=== PATIENT | male | born 1960 | race Caucasian/White ===

== ENCOUNTER 2017-08-06 21:51 | Emergency (ER) | payer SELFPAY ==
--- NOTE | 2017-08-06 22:55 | ER Document Report ---
ED General - General Chief Complaint: Anxiety Stated Complaint: POSSIBLE ANXIETY ISSUE Time Seen by Provider: 08/06/17 22:22 Notes: The patient is a 56-year-old male who presents after he was feeling anxious after he thought his blood pressure was elevated. He has been using meth for the past 3 days and has not been sleeping. Patient said that since he has been in the ER, he is no longer feeling anxious and is ready for discharge. No history of high blood pressure. He does not want to hurt himself or anyone else. In addition, he said that he hardly ever uses drugs anymore, but he met a new girl. TRAVEL OUTSIDE OF THE [place] IN LAST 30 DAYS: No - Related Data Allergies/Adverse Reactions: No Known Allergies Allergy (Unverified 04/27/16 02:25) Past Medical History - General Information source: Patient - Social History Smoking Status: Current Every Day Smoker Frequency of alcohol use: None Drug Abuse: Methamphetamine Family History: None GI Medical History: Reports: Hx Gastritis - Immunizations Hx Diphtheria, Pertussis, Tetanus Vaccination: Yes - not for a long time Review of Systems - Review of Systems Notes: REVIEW OF SYSTEMS: CONSTITUTIONAL: -fevers, -chills EENT: -eye pain, -difficulty swallowing, -nasal congestion CARDIOVASCULAR:-chest pain, -syncope. RESPIRATORY: -cough, -SOB GASTROINTESTINAL: -abdominal pain, - nausea, -vomiting, -diarrhea GENITOURINARY: -dysuria, -hematuria MUSCULOSKELETAL: -back pain, -neck pain SKIN: -rash or skin lesions. HEMATOLOGIC: -easy bruising or bleeding. LYMPHATIC: -swollen, enlarged glands. NEUROLOGICAL: -altered mental status or loss of consciousness, -headache, - neurologic symptoms PSYCHIATRIC: +anxiety, -depression. ALL OTHER SYSTEMS REVIEWED AND NEGATIVE. Physical Exam - Notes Notes: PHYSICAL EXAMINATION: GENERAL: Well-appearing, well-nourished and in no acute distress. HEAD: Atraumatic, normocephalic. EYES: Pupils equal round and reactive to light, extraocular movements intact, sclera anicteric, conjunctiva are normal. ENT: nares patent, oropharynx clear without exudates. Moist mucous membranes. NECK: Normal range of motion, supple without lymphadenopathy LUNGS: Breath sounds clear to auscultation bilaterally and equal. No wheezes rales or rhonchi. HEART: Regular rate and rhythm without murmurs ABDOMEN: Soft, nontender, normoactive bowel sounds. No guarding, no rebound. No masses appreciated. EXTREMITIES: Normal range of motion, no pitting or edema. No cyanosis. NEUROLOGICAL: Cranial nerves grossly intact. Normal speech, normal gait. Normal sensory and motor exams. PSYCH: Normal mood, normal affect. SKIN: Warm, Dry, normal turgor, no rashes or lesions noted. Course - Re-evaluation Re-evalutation: Patient denies SI or HI. He is feeling anxious and has been able to sleep since using meth for the past 3 days. He was initially anxious because he felt his blood pressure was high, but his blood pressure is 119/89. Patient is feeling much better since he has been in the ER and after learning that he has a normal BP. Offered him drug counseling at [facility] and follow-up with his primary care physician. No other emergent issues identified at this time. Discharge - Discharge Clinical Impression: Methamphetamine abuse Condition: Stable Disposition: HOME, SELF-CARE Instructions: Anxiety ([facility]) Additional Instructions: AMPHETAMINE / METHAMPHETAMINE ABUSE: Amphetamines are addicting stimulants. Amphetamines overstimulate the nervous system and give a false feeling of power and mastery. These drugs may be obtained as prescription pills for weight loss, narcolepsy, or attention- deficit disorder. More often they're bought as an illegal street drug, methamphetamine (crank, crystal, speed). Using amphetamines repeatedly can lead to serious medical problems including malnutrition, severe depression, and paranoia. It can take increasing amounts to feel good. Eventually, there will be a "burn out." When you go off amphetamines there is a period of depression that may last for weeks or even months. High doses of amphetamines can cause seizures, confusion, hallucinations, delusions, high blood pressure, muscle damage, heart damage, or sudden . Many times these deadly complications occur even with "normal" doses. Injection of amphetamines is risky for developing abscesses, endocarditis ( heart infection), pneumonia, and AIDS. Withdrawal from amphetamines often causes anxiety, depression, and drug cravings. Some users become paranoid and psychotic. There may be cramps, nausea , and vomiting. Many treatment programs are available, but you must make the decision to quit. Medication can be prescribed to control the symptoms of amphetamine toxicity (beta blockers or benzodiazepines). Withdrawal symptoms may require tranquilizers. FOLLOW-UP CARE: If you have been referred to a physician for follow-up care, call the physician s office for an appointment as you were instructed or within the next two days. If you experience worsening or a significant change in your symptoms, notify the physician immediately or return to the Emergency Department at any time for re-evaluation. Referrals: [facility] [Provider Group] - Follow up as needed
[2017-08-06 23:28] VITALS: BP 133/73
== END 2017-08-06 23:00 | disposition home or self-care (01) ==
LOC: ER 21:51
DX: F15.10 Other stimulant abuse, uncomplicated (principal); F17.200 Nicotine dependence, unspecified, uncomplicated
CPT/HCPCS: 99283

== ENCOUNTER 2018-06-12 21:38 | Emergency (ER) | payer SELFPAY ==
[2018-06-12 22:01] VITALS: BP 133/92
--- NOTE | 2018-06-12 22:17 | ER Document Report ---
ED General - General Chief Complaint: Psych Problem Stated Complaint: PSYCH EVAL Time Seen by Provider: 06/12/18 21:56 TRAVEL OUTSIDE OF THE [place] IN LAST 30 DAYS: No - HPI Notes: Patient is a 57-year-old male that presents to the emergency department for chief complaint of hallucinations. Patient states he has schizophrenia which is just now getting diagnosed. He states he has seen a doctor recently for it and is supposed to be started on medication soon. He states he has an appointment on June 23 where the medication will be prescribed. Tonight he was brought in by EMS after experiencing hallucinations. He reports he is having visual and auditory hallucinations. He states that they are not pleasant but are not telling him to hurt himself or other people. He denies any homicidal or suicidal ideations. He states he would like to go home. Past Medical History: Schizophrenia Past Surgical History: Denies Social History: Denies drugs alcohol and tobacco Family History: Reviewed and noncontributory for presenting illness Allergies: Reviewed, see documented allergy list. REVIEW OF SYSTEMS: CONSTITUTIONAL : No fever No chills No diaphoresis No recent illness EENT: No vision changes No congestion No sore throat CARDIOVASCULAR: No chest pain No palpitations RESPIRATORY: No shortness of breath No cough No difficulty breathing GASTROINTESTINAL: No abdominal pain No nausea No vomiting No diarrhea GENITOURINARY: No dysuria No hematuria No difficulty urinating MUSCULOSKELETAL: No back pain No leg pain No arm pain SKIN: No rashes No lesions LYMPHATIC: No swollen, enlarged glands. NEUROLOGICAL: No lightheadedness No headache No weakness No paresthesias PSYCHIATRIC: No anxiety No depression Auditory and visual hallucinations PHYSICAL EXAMINATION: Vital signs reviewed, nursing noted reviewed. GENERAL: Well-appearing, well-nourished and in no acute distress. HEAD: Atraumatic, normocephalic. EYES: Eyes appear normal, extraocular movements intact, sclera anicteric, conjunctiva are normal. ENT: nares patent, oropharynx clear without exudates. Moist mucous membranes. NECK: Normal range of motion, supple without lymphadenopathy LUNGS: Breath sounds clear to auscultation bilaterally and equal. No wheezes rales or rhonchi. HEART: Regular rate and rhythm without murmurs ABDOMEN: Soft, nontender, normoactive bowel sounds. No rebound, guarding, or rigidity. No masses appreciated. EXTREMITIES: Nontender, good range of motion, no pitting or edema. NEUROLOGICAL: No focal neurological deficits. Moves all extremities spontaneously Motor and sensory grossly intact on exam. PSYCH: Not homicidal, not suicidal , calm, normal affect. SKIN: Warm, Dry, normal turgor, no rashes or lesions noted on exposed skin - Related Data Allergies/Adverse Reactions: No Known Allergies Allergy (Unverified 04/27/16 02:25) Past Medical History - Social History Smoking Status: Current Every Day Smoker Chew tobacco use (# tins/day): No Frequency of alcohol use: Occasional Drug Abuse: None Family History: None Patient has suicidal ideation: No Patient has homicidal ideation: No - Past Medical History Cardiac Medical History: Reports: Hx Hypertension Renal/ Medical History: Denies: Hx Peritoneal Dialysis GI Medical History: Reports: Hx Gastritis - Immunizations Hx Diphtheria, Pertussis, Tetanus Vaccination: Yes - not for a long time Review of Systems - Review of Systems Notes: Dictated Physical Exam - Vital signs Vitals: Temp Pulse Resp BP Pulse Ox 98.1 F 87 12 133/92 H 97 06/12/18 21:54 06/12/18 21:54 06/12/18 21:54 06/12/18 21:54 06/12/18 21:54 - Notes Notes: Dictated Course - Re-evaluation Re-evalutation: 06/12/18 22:20 Vitals reviewed. Nursing notes reviewed. Patient is not homicidal or suicidal. He is having auditory and visual hallucinations and has an appointment for psych evaluation. I offered him blood work today as well as psych evaluation and potential admission if required. Patient does not wish to have any further psychiatric evaluation. He states he feels fine and would like to go home and follow as an outpatient as already scheduled. His care was discussed with his mother who he lives with. She does confirm he has been having hallucinations at home but states he is not violent and she feels safe with him being discharged home today. She also states he has not had any concerning statements of suicidal or homicidal thoughts. She confirmed that he has an appointment on the for psych evaluation. She states she was concerned that his blood pressure seemed a little elevated however his blood pressure is normal in the emergency room. Patient's brother is also at bedside and feels comfortable taking patient home and having him follow with psych as an outpatient. Patient discharged home in stable condition. They were encouraged to return to the emergency room if he required or wanted any further evaluation. - Vital Signs Vital signs: Temp Pulse Resp BP Pulse Ox 98.1 F 87 12 133/92 H 97 06/12/18 21:54 06/12/18 21:54 06/12/18 21:54 06/12/18 21:54 06/12/18 21:54 Discharge - Discharge Clinical Impression: Auditory hallucinations, Visual hallucinations Condition: Stable Disposition: HOME, SELF-CARE Instructions: Hallucinations ([facility]) Additional Instructions: Please return to the emergency department if you have any worsening, or concern of your symptoms. Please return to the emergency department if you develop chest pain, difficulty breathing, severe abdominal pain, or ongoing vomiting. Please follow-up with your primary care physician in 2-3 days and any other recommended physicians. If prescribed, take all medications as directed. If you have any questions or concerns do not hesitate to return the emergency department for evaluation. []
== END 2018-06-12 22:20 | disposition home or self-care (01) ==
LOC: ER 21:38
DX: R44.1 Visual hallucinations (principal); I10 Essential (primary) hypertension; F17.200 Nicotine dependence, unspecified, uncomplicated
CPT/HCPCS: 99284

== ENCOUNTER 2018-08-02 07:45 | Day surgery (SDC) | payer MEDICAID ==
[~2018-08-02 07:45] MED LIST: DIPHENHYDRAMINE HCL 50 MG/ML VIAL ONE; EPINEPHRINE INJ 1 MG/10 ML DISP.SYRIN ONE; FLUMAZENIL INJ 0.5 MG/5 ML VIAL ONE; GLUCAGON,HUMAN RECOMB 1 MG INJ ONE; NALOXONE HCL INJ/PF 0.4 MG/1 ML SDV ONE; ONDANSETRON HCL INJ/PF 4 MG/2 ML SDV ONE
[2018-08-02] MEDS: MIDAZOLAM 2 MG/2 ML INJ ONE ×3 (08:55→09:03)
[2018-08-02] MEDS: FENTANYL CITRATE INJ/PF 100 MCG/2 ML AMPUL ONE ×2 (08:57→09:00)
--- NOTE | 2018-08-02 09:10 | Operative Report ---
Operative Report DATE OF SURGERY: 08/02/18 Operative Report: The risks benefits and alternatives of the procedure explained to the patient in detail and informed consent is obtained.A GIF Olympus video scope was inserted into the patient's mouth and hypopharynx, the esophagus is identified intubated and insufflated, the scope was then advanced through the esophagus stomach and duodenum ,retroflexion maneuver is done the esophagus stomach and first and second portions of the duodenum examined PREOPERATIVE DIAGNOSIS: Dysphagia epigastric pain POSTOPERATIVE DIAGNOSIS: Esophagitis versus Alegria's status post biopsy. Schatzki's ring that is broken. Gastritis status post biopsy for Helicobacter pylori OPERATION: EGD with biopsy SURGEON: JOSE KULKARNI ANESTHESIA: Moderate Sedation - 6 mg of Versed, 100 mcg of fentanyl. Conscious sedation monitoring time 30 minutes. TISSUE REMOVED OR ALTERED: As noted above. COMPLICATIONS: None. ESTIMATED BLOOD LOSS: None. INTRAOPERATIVE FINDINGS: As noted above. PROCEDURE: Patient tolerated the procedure well. No immediate postprocedure complications are noted. Patient discharged in good condition. Discharge date 08/02/2018. Discharge diet: Regular. Discharge activity: Regular. 2-3-week follow-up to discuss findings. Patient is instructed to call the office or proceed to the emergency room should there be any further problems or questions. We will wait on the pathology.
[2018-08-02 10:49] VITALS: BP 103/66
== END 2018-08-02 10:25 | disposition home or self-care (01) ==
LOC: END 07:45
PROVIDERS: ATTEND Internal Medicine Gastroenterology
PROC: 0DB68ZX Excision of Stomach, Via Natural or Artificial Opening Endoscopic, Diagnostic (ICD-10-PCS; 2018-08-02)
PROC: 0DB58ZX Excision of Esophagus, Via Natural or Artificial Opening Endoscopic, Diagnostic (ICD-10-PCS; principal; 2018-08-02 09:00)
DX: K22.2 Esophageal obstruction (principal); K29.50 Unspecified chronic gastritis without bleeding; K20.9 Esophagitis, unspecified; F17.200 Nicotine dependence, unspecified, uncomplicated
CPT/HCPCS: 43239; 88342 ×2; 88305 ×2; J2250; J3010; J0171; J1200; J1610; J2310; J2405; J3490

== ENCOUNTER 2018-08-24 11:19 | Day surgery (SDC) | payer MEDICAID ==
[2018-08-24] MEDS: MIDAZOLAM 2 MG/2 ML INJ ONE ×2 (11:44→11:50)
[2018-08-24] MEDS: FENTANYL CITRATE INJ/PF 100 MCG/2 ML AMPUL ONE ×2 (11:46→11:48)
--- NOTE | 2018-08-24 11:59 | Operative Report ---
Operative Report DATE OF SURGERY: 08/24/18 Operative Report: The risks benefits and alternatives of the procedure explained to the patient in detail and informed consent is obtained.A GIF Olympus video scope was inserted into the patient's mouth and hypopharynx, the esophagus is identified intubated and insufflated ,the scope was then advanced through the esophagus stomach and duodenum ,retroflexion maneuver is done, the esophagus stomach and first and second portions of the duodenum examined. PREOPERATIVE DIAGNOSIS: Alegria's esophagus POSTOPERATIVE DIAGNOSIS: Alegria's esophagus with radiofrequency ablation OPERATION: EGD with radiofrequency ablation SURGEON: JOSE KULKARNI ANESTHESIA: Moderate Sedation - 4 mg of Versed, 100 mcg of fentanyl. Conscious sedation monitoring time 30 minutes. TISSUE REMOVED OR ALTERED: As noted above. COMPLICATIONS: None. ESTIMATED BLOOD LOSS: None. INTRAOPERATIVE FINDINGS: As noted above. PROCEDURE: Patient tolerated the procedure well. No immediate postprocedure complications are noted. Patient discharged in good condition. Discharge date 08/24/2018. Discharge diet: Regular. Discharge activity: Regular. 2-3-week follow-up to discuss findings. Patient is instructed call the office or proceed to the emergency room should there be any further problems or questions.
[2018-08-24 12:56] VITALS: BP 127/75
== END 2018-08-24 13:00 | disposition home or self-care (01) ==
LOC: END 11:19
PROVIDERS: ATTEND Internal Medicine Gastroenterology
DX: K22.719 Barrett's esophagus with dysplasia, unspecified (principal); K21.9 Gastro-esophageal reflux disease without esophagitis; F17.210 Nicotine dependence, cigarettes, uncomplicated; Z79.899 Other long term (current) drug therapy
CPT/HCPCS: 43270; J2250; J3010; J0171; J1200; J1610; J2310; J2405; J3490

== ENCOUNTER 2019-11-17 17:22 | Emergency (ER) | payer SELFPAY ==
[2019-11-17] MEDS ORDERED: IPRATROPIUM/ALBUTEROL 0.5-2.5 MG/3 ML AMPUL NEB ONE ×2 (17:39→20:48)
--- NOTE | 2019-11-17 17:46 | ER Document Report ---
ED Medical Screen (RME) - General Chief Complaint: Shortness Of Breath Stated Complaint: CHEST PAIN/RIGHT ARM PAIN Time Seen by Provider: 11/17/19 17:33 Primary Care Provider: KARL PADILLA PA-C [Primary Care Provider] - Follow up as needed Mode of Arrival: Ambulatory Information source: Patient, Relative Notes: 59-year-old male presents to the emergency department with severe shortness of breath. Reports he has had the symptoms for years. Reports increase in the past 4 months. With severe SOB today. Reports he could not walk from the house to the car without sitting down to rest. Patient is a smoker. Patient has history of drug use and alcohol abuse but no longer uses. Patient reports he is not been to a provider in years because he does have insurance. Reports he has been vomiting all day today. Also complains of right arm pain radiating down to his fingers. I have greeted and performed a rapid initial assessment of this patient. A comprehensive ED assessment and evaluation of the patient, analysis of test results and completion of the medical decision making process will be conducted by additional ED providers. TRAVEL OUTSIDE OF THE [place] IN LAST 30 DAYS: No - Related Data Allergies/Adverse Reactions: No Known Allergies Allergy (Verified 08/24/18 11:24) Past Medical History - Social History Chew tobacco use (# tins/day): No Frequency of alcohol use: None Drug Abuse: None - Past Medical History Cardiac Medical History: Denies: Hx Coronary Artery Disease, Hx Heart Attack, Hx Hypertension Pulmonary Medical History: Denies: Hx Asthma, Hx Bronchitis, Hx COPD, Hx Pneumonia Neurological Medical History: Denies: Hx Cerebrovascular Accident, Hx Seizures Renal/ Medical History: Denies: Hx Peritoneal Dialysis GI Medical History: Reports: Hx Gastritis Musculoskeltal Medical History: Denies Hx Arthritis - Immunizations Hx Diphtheria, Pertussis, Tetanus Vaccination: Yes - not for a long time Doctor's Discharge - Discharge Referrals: KARL PADILLA PA-C [Primary Care Provider] - Follow up as needed
--- NOTE | 2019-11-17 18:29 | RADIOLOGY REPORT (SQ) ---
EXAM DESCRIPTION: CHEST 2 VIEWS COMPLETED DATE/TIME: 11/17/2019 6:03 pm REASON FOR STUDY: chest pain COMPARISON: Chest radiographs 09/13/2007 EXAM PARAMETERS: NUMBER OF VIEWS: two views TECHNIQUE: Digital Frontal and Lateral radiographic views of the chest acquired. RADIATION DOSE: NA LIMITATIONS: none FINDINGS: LUNGS AND PLEURA: Nodular and patchy right upper lobe opacities. Right lower lobe collaps e. Mild elevation the right hemidiaphragm. MEDIASTINUM AND HILAR STRUCTURES: No masses or contour abnormalities. HEART AND VASCULAR STRUCTURES: Heart normal size. No evidence for failure. BONES: No acute findings. HARDWARE: None in the chest. OTHER: No other significant finding. IMPRESSION: Nodular and patchy right upper lobe airspace opacities. Right lower lobe collapse. Cor relate for infection and/or malignancy. Consider CT for further evaluation. TECHNICAL DOCUMENTATION: JOB ID: [id number] 2010 [employer]- All Rights Reserved Reading location - IP/workstation name: [email or web address]
[2019-11-17 18:30] LABS: ABSOLUTE BASOPHILS # (AUTO) 0.1 10^3/uL (0.0-0.2); ABSOLUTE EOSINOPHILS # (AUTO) 0.5 10^3/uL (0.0-0.6); ABSOLUTE LYMPHOCYTES (AUTO) 1.1 10^3/uL (0.5-4.7); ABSOLUTE MONOCYTES (AUTO) 0.8 10^3/uL (0.1-1.4); ABSOLUTE NEUT (AUTO) 5.7 10^3/uL (1.7-8.2); BASOPHILS % (AUTO) 0.7 % (0-2); HEMATOCRIT 36.4 % (37.9-51.0); HEMOGLOBIN 12.1 g/dL (13.5-17.0); LYMPHOCYTES % (AUTO) 13.9 % (13-45); MEAN CORPUSCULAR HEMOGLOBIN 30.4 pg (27.0-33.4); MEAN CORPUSCULAR HGB CONC 33.3 g/dL (32.0-36.0); MEAN CORPUSCULAR VOLUME 91 fl (80-97); MONOCYTES % (AUTO) 9.9 % (3-13); PLATELET COUNT 589 10^3/uL (150-450); RED BLOOD COUNT 3.99 10^6/uL (4.35-5.55); RED CELL DISTRIBUTION WIDTH 14.1 % (11.5-14.0); SEGMENTED NEUTROPHILS % (AUTO) 69.5 % (42-78); TOTAL CELLS COUNTED % (AUTO) 100 %; WHITE BLOOD COUNT 8.2 10^3/uL (4.0-10.5)
[2019-11-17 18:37] LABS: ALBUMIN 3.9 g/dL (3.5-5.0); ALKALINE PHOSPHATASE 125 U/L (38-126); ANION GAP 10 (5-19); ASPARTATE AMINO TRANSFERASE 23 U/L (17-59); BILIRUBIN,TOTAL 0.2 mg/dL (0.2-1.3); BLOOD UREA NITROGEN 9 mg/dL (7-20); CALCIUM 9.3 mg/dL (8.4-10.2); CARBON DIOXIDE 27 mmol/L (22-30); CHLORIDE 103 mmol/L (98-107); GLUCOSE 139 mg/dL (75-110); POTASSIUM 4.4 mmol/L (3.6-5.0); TOTAL PROTEIN 7.2 g/dL (6.3-8.2)
[2019-11-17] MEDS ORDERED: ONDANSETRON HCL INJ/PF 4 MG/2 ML SDV IV ONE (20:48)
[2019-11-17] MEDS ORDERED: CEFTRIAXONE 1 GM/D5W RTU 1 GM/50 ML RTUPB IV ONE (20:48)
[2019-11-17] MEDS ORDERED: KETOROLAC TROMETHAMINE INJ/PF 30 MG/1 ML SDV IV ONE (20:50)
--- NOTE | 2019-11-17 20:52 | ER Document Report ---
Entered by ARIADNE SHAFFER SCRIBE 11/17/192012 Acting as scribe for:CAMPOS GRAY IV, MD ED General - General Chief Complaint: Shortness Of Breath Stated Complaint: CHEST PAIN/RIGHT ARM PAIN Time Seen by Provider: 11/17/19 17:33 Primary Care Provider: KARL PADILLA PA-C [Primary Care Provider] - Follow up as needed Mode of Arrival: Ambulatory Information source: Patient Notes: This 59 year old male patient with no significant past medical history presents to the ED today with complaints of a severe cough and shortness of breath for t he past x5 months, worse today. Patient states that he brings up a thick, white sputum that is sometimes speckled with blood when he coughs. Patient also reports reproducible right-sided chest pain with radiation to his RUE and down to his fingers. Patient states that the RUE pain started today along with tingling/numbness to his fingers. Patient states that he smokes x1.5 ppd and has been doing so for the past x40 years. Sister at bedside states that the patient has not been seeking medical care because he does not have insurance. TRAVEL OUTSIDE OF THE [place] IN LAST 30 DAYS: No - Related Data Allergies/Adverse Reactions: No Known Allergies Allergy (Verified 08/24/18 11:24) Past Medical History - General Information source: Patient, Relative - Social History Smoking Status: Current Every Day Smoker Cigarette use (# per day): Yes - 1.5 ppd Chew tobacco use (# tins/day): No Smoking Education Provided: No Frequency of alcohol use: None Drug Abuse: None Family History: Reviewed & Not Pertinent Patient has suicidal ideation: No Patient has homicidal ideation: No GI Medical History: Reports: Hx Gastritis - Immunizations Hx Diphtheria, Pertussis, Tetanus Vaccination: Yes - not for a long time Review of Systems - Review of Systems Constitutional: No symptoms reported EENT: No symptoms reported Cardiovascular: See HPI, Chest pain - reproducible Respiratory: See HPI, Cough, Hemoptysis, Short of breath, Sputum Gastrointestinal: See HPI, Vomiting Genitourinary: No symptoms reported Male Genitourinary: No symptoms reported Musculoskeletal: See HPI, Other - RUE pain. Tingling/numbness to fingers. Skin: No symptoms reported Hematologic/Lymphatic: No symptoms reported Neurological/Psychological: No symptoms reported -: Yes All other systems reviewed and negative Physical Exam - Vital signs Vitals: Temp Pulse Resp BP Pulse Ox 97.2 F 95 16 116/66 97 11/17/19 17:41 11/17/19 17:41 11/17/19 17:41 11/17/19 17:41 11/17/19 17:41 Interpretation: Normal - General General appearance: Alert In distress: None - HEENT Head: Normocephalic, Atraumatic Eyes: Normal Pupils: PERRL - Respiratory Respiratory status: No respiratory distress Chest status: Nontender Breath sounds: Decreased air movement - Diminished breath sounds in right posterior part of the the upper lobe., Rhonchi - Appreciated in lower posterior part of right upper lung., Other - Crackles appreciated in lower posterior part of right upper lung. Left side of lungs sound fine. Chest palpation: Normal - Cardiovascular Rhythm: Regular Heart sounds: Normal auscultation Murmur: No Friction rub: No Gallop: None auscultated - Abdominal Inspection: Normal Distension: No distension Bowel sounds: Normal Tenderness: Nontender - Abdomen soft Organomegaly: No organomegaly - Back Back: Normal, Nontender - Extremities General upper extremity: Normal inspection General lower extremity: Normal inspection - Neurological Neuro grossly intact: Yes - Psychological Associated symptoms: Normal affect, Normal mood - Skin Skin Temperature: Warm Skin Moisture: Dry Skin Color: Normal Course - Re-evaluation Re-evalutation: 11/18/19 05:45 Results of ED MSE, [facility] discussed with patient and patient's sister. All questions were answered. 11/18/19 05:48 Decision was made by this MD to initiate transfer to outside facility because to not have inpatient cardiology available at this time nor do we have inpatient pulmonology available for bronchoscopy with biopsy - Vital Signs Vital signs: Temp Pulse Resp BP Pulse Ox 98.1 F 119 H 19 110/78 97 11/18/19 05:39 11/18/19 03:52 11/18/19 05:39 11/18/19 05:39 11/18/19 05:39 - Laboratory Result Diagrams: 11/18/19 01:50 11/17/19 17:58 Laboratory results interpreted by me: 11/17/19 11/17/19 11/17/19 17:58 17:58 17:58 RBC 3.99 L Hgb 12.1 L Hct 36.4 L RDW 14.1 H Plt Count 589 H D-Dimer 2.06 H Glucose 139 H 11/18/19 01:50 RBC 3.60 L Hgb 11.1 L Hct 32.7 L RDW 14.5 H Plt Count 487 H D-Dimer Glucose - Diagnostic Test Radiology reviewed: Reports reviewed - EKG Interpretation by Me Additional EKG results interpreted by me: 11/17/19 20:52 EKG obtained on 11/17/2019 at 1725 hrs. was interpreted by this MD. Findings: Sinus rhythm, rate 93, normal axis, P waves proceed QRS complexes, QRS complexes appear narrow, there are no obvious ST segment patterns of elevation or depression present to suggest acute myocardial ischemia or infarction. Impression: Sinus rhythm with nonspecific ST segments 11/18/19 01:19 EKG obtained on 11/17/2019 at 2243 hrs. was interpreted by this MD. Findings tachycardia with a rate of 149, normal axis, Q waves appear narrow, there are no obvious P waves preceding QRS complexes, there appears to be ST segment depression and leads I, 2, V4 through V6. Impression A. fib with RVR. EKG obtained on 11/17/2019 at 2346 hrs. was interpreted by this MD. Findings: At rial fibrillation with a rate of 126 normal axis, P waves are absent, Q RS complexes appear narrow, ST segment depression in leads I, 2, the 4 through V6 seem to resolved. Impression atrial fibrillation with RVR. - Consults dr luong, hospitalist, [facility] Time consulted: 04:54 - Dr. Luong accepted pt for transfer to his facility Reason for consultation: 11/18/19 05:47 Pulmonary mass, new onset A. fib with RVR, postobstructive pneumonia Critical Care Note - Critical Care Note Total time excluding time spent on procedures (mins): 120 Discharge - Discharge Clinical Impression: Pulmonary mass, New onset atrial fibrillation, Postobstructive pneumonia Condition: Fair Disposition: [facility] Referrals: KARL PADILLA PA-C [Primary Care Provider] - Follow up as needed I personally performed the services described in the documentation, reviewed and edited the documentation which was dictated to the scribe in my presence, and it accurately records my words and actions.
--- NOTE | 2019-11-17 21:52 | RADIOLOGY REPORT (SQ) ---
EXAM DESCRIPTION: CT CHEST WITH IV CONTRAST COMPLETED DATE/TME: 11/17/2019 20:50 CLINICAL HISTORY: 59 years, Male, 5 month cough, abnormal cxr COMPARISON: Chest radiograph performed earlier the same day TECHNIQUE: Contrast enhanced CT of the chest was acquired. Images were obtained after the uneventful administration of 80 mL of intravenous contrast. Images stored on PACS. All CT scanners at this facility use dose modulation, iterative reconstruction, and/or weight based dosing when appropriate to reduce radiation dose to as low as reasonably achievable (ALARA). [facility]: Dose Right [facility]: CareDose [facility]: Dose Right [facility]: Teradose 4D [facility]: Power-One LIMITATIONS: None. FINDINGS: Assessment of the central airways reveals complete occlusion of the right upper lobe airway as a result of a large right hilar/paramediastinal mass measuring up to 7.8 x 7.9 cm in size. This mass extends into the mediastinum, splaying the trachea about the subcarinal region. In addition, the mass circumferentially encases and narrows the right main pulmonary artery as well as completely occludes the right upper lobe pulmonary artery. Additionally, the right middle and lower lobar airways are also significantly narrowed as a result of the mass. An associated small right pleural effusion is noted. In addition, there are regional areas of consolidation located within the periphery of the right upper lobe as well as throughout the right lower lobe. Elements of groundglass opacity are also noted. In addition, there is multifocal tree-in-bud opacity throughout both lungs with more focal nodules including a 0.4 cm nodule within the right middle lobe on image 42 of series 4 as well as a 0.7 cm solid subpleural nodule within the left lower lobe on image 46 of series 4. Mediastinal windows show a suspected enlarged left hilar lymph node measuring 1.0 x 1.0 cm in size on image 33 of series 3. Calcifications are evident about the coronary vessels. Limited evaluation of the upper abdomen reveals no suspicious finding. Bone windows show no destructive osseous lesions. IMPRESSION: Large right hilar/paramediastinal mass which extends to both the right upper, middle, and lower lobes, circumferentially encasing and obstructing the right upper and lower lobar airways as well as narrowing the right middle lobe airways, indicative of primary bronchogenic carcinoma. Superimposed multifocal consolidative and tree-in-bud opacity throughout the right lung most likely corresponds to postobstructive pneumonia/bronchiolitis. In addition, the mass circumferentially encases and narrows the right main pulmonary artery and appears to obstruct the right upper lobe pulmonary artery. Consider further assessment with PET/CT or soft tissue sampling. Superimposed small right pleural effusion, likely malignant. Additional patchy tree-in-bud opacity about the left lung most likely indicates an infectious/inflammatory bronchiolitis. Scattered solid nodules throughout both lungs, concerning for metastatic disease. Additional mildly enlarged left hilar lymph node is also concerning for a metastatic focus. TECHNICAL DOCUMENTATION: Quality ID # 436: Final reports with documentation of one or more dose reduction techniques (e.g., Automated exposure control, adjustment of the mA and/or kV according to patient size, use of iterative reconstruction technique) copyright 2011 [employer]- All Rights Reserved
[2019-11-17] MEDS ORDERED: NORMAL SALINE 1000 ML 1,000 ML IV ONE (22:29)
[2019-11-17] MEDS ORDERED: DILTIAZEM HCL INJ 25 MG/5 ML VIAL IV ONE (22:51)
[2019-11-17 23:21] LABS: ARTERIAL BLOOD BASE EXCESS -2.7 mmol/L; ARTERIAL BLOOD H2CO3 1.12 mmol/L (1.05-1.35); ARTERIAL BLOOD HCO3 21.9 mmol/L (20-24); ARTERIAL BLOOD PCO2 37.1 mmHg (35-45); ARTERIAL BLOOD PH 7.39 (7.35-7.45); ARTERIAL BLOOD PO2 91.8 mmHg (80-100)
[2019-11-17] MEDS ORDERED: NORMAL SALINE 500 ML IV ONE ×2 (23:21→23:46)
[2019-11-17] MEDS ORDERED: METOPROLOL TARTRATE PF/INJ 5 MG/5 ML SDV IV ONE ×2 (23:22→23:47)
[2019-11-17 23:32] LABS: ARTERIAL BLOOD FIO2 2L
[2019-11-18] MEDS ORDERED: METOPROLOL SUCCINATE 50 MG TAB.SR.24H PO ONE (00:52)
[2019-11-18] MEDS ORDERED: NORMAL SALINE 1000 ML 1,000 ML IV ONE (01:45)
[2019-11-18 02:04] LABS: ABSOLUTE BASOPHILS # (AUTO) 0.1 10^3/uL (0.0-0.2); ABSOLUTE EOSINOPHILS # (AUTO) 0.5 10^3/uL (0.0-0.6); ABSOLUTE LYMPHOCYTES (AUTO) 1.8 10^3/uL (0.5-4.7); ABSOLUTE MONOCYTES (AUTO) 0.8 10^3/uL (0.1-1.4); ABSOLUTE NEUT (AUTO) 5.5 10^3/uL (1.7-8.2); BASOPHILS % (AUTO) 0.9 % (0-2); EOSINOPHILS % (AUTO) 5.5 % (0-6); HEMATOCRIT 32.7 % (37.9-51.0); HEMOGLOBIN 11.1 g/dL (13.5-17.0); LYMPHOCYTES % (AUTO) 20.7 % (13-45); MEAN CORPUSCULAR HEMOGLOBIN 30.8 pg (27.0-33.4); MEAN CORPUSCULAR HGB CONC 33.9 g/dL (32.0-36.0); MEAN CORPUSCULAR VOLUME 91 fl (80-97); MONOCYTES % (AUTO) 9.6 % (3-13); PLATELET COUNT 487 10^3/uL (150-450); RED CELL DISTRIBUTION WIDTH 14.5 % (11.5-14.0); SEGMENTED NEUTROPHILS % (AUTO) 63.3 % (42-78); TOTAL CELLS COUNTED % (AUTO) 100 %; WHITE BLOOD COUNT 8.7 10^3/uL (4.0-10.5)
--- NOTE | 2019-11-18 04:40 | RADIOLOGY REPORT (SQ) ---
Clinical indication: tachycardia, likely lung ca Comparison: None. Correlation: Chest radiography and CT November 17, 2019 Technique: Perfusion imaging was obtained as per standard protocol after intravenous administration of undocumented mCi of technetium 99m labeled MAA. Ventilation imaging was obtained after inhalation of undocumented mCi of technetium 99m DTPA radioaerosol. Findings: Perfusion imaging demonstrates homogeneous localization radiotracer to the left lung.. Ventilation imaging is also normal the left lung. Imaging of the right lung demonstrates trivial localization of radiotracer at the right lung base with perfusion imaging. There is no measurable localization of radiotracer with ventilation imaging. When correlated with CT, there is significant extrinsic compression of the right pulmonary artery and associated right bronchus. Impression: Low probability for pulmonary embolus. Extrinsic compression of the right mainstem artery and right bronchus.
[2019-11-18] MEDS ORDERED: METOPROLOL SUCCINATE 25 MG TAB.SR.24H PO ONE (05:12)
[2019-11-18 08:50] VITALS: BP 102/67
--- NOTE | 2019-11-19 00:29 | EKG REPORT ---
SEVERITY:- ABNORMAL ECG - ATRIAL FIBRILLATION VENTRICULAR PREMATURE COMPLEX ABERRANT COMPLEX NONSPECIFIC REPOL ABNORMALITY, DIFFUSE LEADS BORDERLINE PROLONGED QT INTERVAL : Confirmed by: Heydi Cool 19-Nov-2019 00:28:59
--- NOTE | 2019-11-19 00:30 | EKG REPORT ---
SEVERITY:- BORDERLINE ECG - SINUS RHYTHM PROBABLE LEFT ATRIAL ABNORMALITY : Confirmed by: Heydi Cool 19-Nov-2019 00:29:18
--- NOTE | 2019-11-19 00:30 | EKG REPORT ---
SEVERITY:- ABNORMAL ECG - ATRIAL FIBRILLATION PAIRED VENTRICULAR PREMATURE COMPLEXES REPOL ABNRM SUGGESTS ISCHEMIA, DIFFUSE LEADS BORDERLINE PROLONGED QT INTERVAL : Confirmed by: Heydi Cool 19-Nov-2019 00:29:11
== END 2019-11-18 08:30 | disposition short-term general hospital (02) ==
LOC: ER 17:22
DX: J18.9 Pneumonia, unspecified organism (principal); R91.8 Other nonspecific abnormal finding of lung field; I48.91 Unspecified atrial fibrillation; R06.02 Shortness of breath; R04.2 Hemoptysis; R07.9 Chest pain, unspecified; M79.601 Pain in right arm; R20.0 Anesthesia of skin; R20.2 Paresthesia of skin; F17.210 Nicotine dependence, cigarettes, uncomplicated
CPT/HCPCS: 93005; 96376; 94640; 99291; 99292; 96361; 96375; 96365; 36415; 87040; 82803; 83605; 83735; 84443; 85025; 80053; 84484; 85379; 71046; 78582; 71260; 93010; A9540; A9567; J3490 ×3; J1885; J2405; J7030 ×2; J7040 ×2; J0696; J7620; Q9969

== ENCOUNTER 2019-12-19 07:48 | Outpatient (CLI) | payer MEDICAID ==
[~2019-12-19 07:48] MED LIST changes: +ATEZOLIZUMAB 1,200 MG in NORMAL SALINE 250 ML IV PRN; +CARBOPLATIN 625 MG in NORMAL SALINE 250 ML IV PRN; +DEXAMETHASONE 10 MG in NS 50 ML IV PRN; -DIPHENHYDRAMINE HCL 50 MG/ML VIAL ONE; -EPINEPHRINE INJ 1 MG/10 ML DISP.SYRIN ONE; +ETOPOSIDE IV PRN; -FLUMAZENIL INJ 0.5 MG/5 ML VIAL ONE; -GLUCAGON,HUMAN RECOMB 1 MG INJ ONE; -NALOXONE HCL INJ/PF 0.4 MG/1 ML SDV ONE; +NORMAL SALINE 250 ML IV PRN; +NORMAL SALINE IV PRN; -ONDANSETRON HCL INJ/PF 4 MG/2 ML SDV ONE; +PALONOSETRON 0.25 MG/5 ML VIAL IV PRN
[2019-12-19 08:17] VITALS: BP 128/78
== END 2019-12-19 11:58 | disposition home or self-care (01) ==
LOC: II 07:48 → 5TH 07:51 → II 11:58
PROVIDERS: ATTEND Internal Medicine
DX: Z51.11 Encounter for antineoplastic chemotherapy (principal); C34.11 Malignant neoplasm of upper lobe, right bronchus or lung
CPT/HCPCS: 96413; 96367; 96375; 96417; J9045; J9181; J7050; J7040; J1100; J2469; J9022

== ENCOUNTER 2019-12-20 09:56 | Outpatient (CLI) | payer MEDICAID ==
[~2019-12-20 09:56] MED LIST changes: -ATEZOLIZUMAB 1,200 MG in NORMAL SALINE 250 ML IV PRN; -CARBOPLATIN 625 MG in NORMAL SALINE 250 ML IV PRN; +NORMAL SALINE 250 ML @ KVO IV PRN; -NORMAL SALINE 250 ML IV PRN; -PALONOSETRON 0.25 MG/5 ML VIAL IV PRN
[2019-12-20 10:17] VITALS: BP 126/73
== END 2019-12-20 12:00 | disposition home or self-care (01) ==
LOC: II 09:56 → 5TH 10:16 → II 12:00
PROVIDERS: ATTEND Internal Medicine
DX: Z51.11 Encounter for antineoplastic chemotherapy (principal); C34.11 Malignant neoplasm of upper lobe, right bronchus or lung
CPT/HCPCS: 96413; 96367; J9181; J7040; J1100

== ENCOUNTER 2019-12-21 09:47 | Outpatient (CLI) | payer MEDICAID ==
[2019-12-21] MEDS ORDERED: DEXAMETHASONE SOD PHOSPHATE 10 MG in NORMAL SALINE 100 ML IV PRN (10:00)
[2019-12-21 10:24] VITALS: BP 115/68
== END 2019-12-21 12:40 | disposition home or self-care (01) ==
LOC: II 09:47 → 5TH 09:49 → II 12:40
PROVIDERS: ATTEND Internal Medicine
DX: Z51.11 Encounter for antineoplastic chemotherapy (principal); C34.11 Malignant neoplasm of upper lobe, right bronchus or lung
CPT/HCPCS: 96413; 96367; J9181; J7050; J7040; J1100

== ENCOUNTER 2020-01-09 08:56 | Outpatient (CLI) | payer MEDICAID ==
[~2020-01-09 08:56] MED LIST changes: +ATEZOLIZUMAB 1,200 MG in NORMAL SALINE 250 ML IV PRN; +CARBOPLATIN IV PRN; +PALONOSETRON 0.25 MG/5 ML VIAL IV PRN
[2020-01-09 09:21] VITALS: BP 97/78
== END 2020-01-09 12:08 | disposition home or self-care (01) ==
LOC: II 08:56 → 5TH 08:59 → II 12:08
PROVIDERS: ATTEND Internal Medicine
DX: Z51.11 Encounter for antineoplastic chemotherapy (principal); C34.11 Malignant neoplasm of upper lobe, right bronchus or lung
CPT/HCPCS: 96413; 96367; 96375; 96417; J9045; J9181; J7050; J7040; J1100; J2469; J9022

== ENCOUNTER 2020-01-10 09:36 | Outpatient (CLI) | payer MEDICAID ==
[~2020-01-10 09:36] MED LIST changes: -ATEZOLIZUMAB 1,200 MG in NORMAL SALINE 250 ML IV PRN; -CARBOPLATIN IV PRN; -NORMAL SALINE 250 ML @ KVO IV PRN; +NORMAL SALINE 250 ML IV PRN; -PALONOSETRON 0.25 MG/5 ML VIAL IV PRN
[2020-01-10 09:44] VITALS: BP 114/71
== END 2020-01-10 11:00 | disposition home or self-care (01) ==
LOC: II 09:36 → 5TH 09:43 → II 11:00
PROVIDERS: ATTEND Internal Medicine
DX: Z51.11 Encounter for antineoplastic chemotherapy (principal); C34.11 Malignant neoplasm of upper lobe, right bronchus or lung
CPT/HCPCS: 96413; 96367; J9181; J7040; J1100

== ENCOUNTER 2020-01-11 09:40 | Outpatient (CLI) | payer MEDICAID ==
[~2020-01-11 09:40] MED LIST changes: +NORMAL SALINE 250 ML @ KVO IV PRN; -NORMAL SALINE 250 ML IV PRN
[2020-01-11 09:46] VITALS: BP 108/56
== END 2020-01-11 11:10 | disposition home or self-care (01) ==
LOC: II 09:40 → 5TH 09:42 → II 11:10
PROVIDERS: ATTEND Internal Medicine
DX: Z51.11 Encounter for antineoplastic chemotherapy (principal); C34.11 Malignant neoplasm of upper lobe, right bronchus or lung
CPT/HCPCS: 96413; 96367; J9181; J7040; J1100

== ENCOUNTER 2020-01-23 05:38 | Day surgery (SDC) | payer MEDICAID ==
[2020-01-16 10:26] LABS: HEMATOCRIT 34.4 % (37.9-51.0); HEMOGLOBIN 11.9 g/dL (13.5-17.0); MEAN CORPUSCULAR HEMOGLOBIN 31.9 pg (27.0-33.4); MEAN CORPUSCULAR HGB CONC 34.5 g/dL (32.0-36.0); MEAN CORPUSCULAR VOLUME 92 fl (80-97); PLATELET COUNT 292 10^3/uL (150-450); RED BLOOD COUNT 3.73 10^6/uL (4.35-5.55); RED CELL DISTRIBUTION WIDTH 18.5 % (11.5-14.0); WHITE BLOOD COUNT 3.1 10^3/uL (4.0-10.5)
[2020-01-16 11:03] LABS: ANION GAP 8 (5-19); BLOOD UREA NITROGEN 15 mg/dL (7-20); CALCIUM 9.4 mg/dL (8.4-10.2); CARBON DIOXIDE 28 mmol/L (22-30); CHLORIDE 98 mmol/L (98-107); GLUCOSE 101 mg/dL (75-110); POTASSIUM 4.5 mmol/L (3.6-5.0)
--- NOTE | 2020-01-16 20:41 | EKG REPORT ---
SEVERITY:- OTHERWISE NORMAL ECG - SINUS RHYTHM MINIMAL ST DEPRESSION, LATERAL LEADS : Confirmed by: Heydi Cool 16-Jan-2020 20:41:03
[~2020-01-23 05:38] MED LIST changes: +ACETAMINOPHEN 325 MG TABLET PO PRN; +CEFAZOLIN 1 GM/D5W RTU 1 GM/50 ML RTUPB IV ONE; +CEFAZOLIN 1 GM/D5W RTU 1 GM/50 ML RTUPB IV PRN; -DEXAMETHASONE 10 MG in NS 50 ML IV PRN; -ETOPOSIDE IV PRN; +LIDOCAINE 0.5% INJ-PF (5 MG/ML) 50 ML SDV SUBCUT PRN; -NORMAL SALINE 250 ML @ KVO IV PRN; -NORMAL SALINE IV PRN; +RINGERS SOLUTION,LACTATED 1,000 ML IV PRN
[2020-01-23] MEDS ORDERED: LIDOCAINE 1%/EPINEPHRINE INJ 20 ML VIAL ONE ×2 (06:54→08:28)
[2020-01-23] MEDS ORDERED: FENTANYL CITRATE INJ/PF 100 MCG/2 ML AMPUL ONE (07:17)
[2020-01-23] MEDS ORDERED: MIDAZOLAM 2 MG/2 ML INJ ONE (07:17)
[2020-01-23] MEDS ORDERED: PROPOFOL INJ 200 MG/20 ML VIAL IV ONE (07:18)
[2020-01-23] MEDS ORDERED: DIPHENHYDRAMINE HCL 50 MG/ML VIAL IV PRN (07:49)
[2020-01-23] MEDS ORDERED: OXYCODONE-ACETAMINOPHEN 5-325 MG TABLET PO PRN ×2 (07:49)
[2020-01-23] MEDS ORDERED: FENTANYL CITRATE INJ/PF 100 MCG/2 ML AMPUL IV PRN ×3 (07:49)
[2020-01-23] MEDS ORDERED: PROMETHAZINE HCL INJ 25 MG/1 ML VIAL IV PRN ×2 (07:49)
[2020-01-23] MEDS ORDERED: MEPERIDINE HCL/PF INJ 25 MG/1 ML DISP.SYRIN IV PRN (07:49)
--- NOTE | 2020-01-23 08:18 | RADIOLOGY REPORT (SQ) ---
EXAM DESCRIPTION: CHEST SINGLE VIEW IMAGES COMPLETED DATE/TIME: 01/23/2020 7:09 am REASON FOR STUDY: preop COMPARISON: 11/17/2019 EXAM PARAMETERS: NUMBER OF VIEWS: One view. TECHNIQUE: Single frontal radiographic view of the chest acquired. RADIATION DOSE: NA LIMITATIONS: None. FINDINGS: LUNGS AND PLEURA: Right suprahilar and right upper lobe mass are again noted. Mild promin ence of interstitial markings with probable residual postobstructive right upper lobe airspace diseas e. No effusions or pneumothorax. MEDIASTINUM AND HILAR STRUCTURES: As above. HEART AND VASCULAR STRUCTURES: Heart normal in size. Normal vasculature. BONES: No acute findings. HARDWARE: None in the chest. OTHER: No other significant finding. IMPRESSION: Improved aeration in the right perihilar region right upper lobe. Right perihilar and r ight upper lobe masses are again noted. TECHNICAL DOCUMENTATION: JOB ID: [id number] 2010 [employer]- All Rights Reserved Reading location - IP/workstation name: [email or web address]
--- NOTE | 2020-01-23 08:21 | Discharge Summary ---
Discharge Summary (SDC) - Discharge Final Diagnosis: Metastatic squamous cell carcinoma of the lung Date of Surgery: 01/23/20 Discharge Date: 01/23/20 Condition: Good Treatment or Instructions: May use port; resume preoperative medications, diet, activity; may take Tylenol or Motrin as needed pain. May follow-up with [place] [facility] in 2 weeks. May shower in 48 hours Referrals: KARL PADILLA PA-C [Primary Care Provider] - Discharge Diet: As Tolerated Discharge Activity: Activity As Tolerated Home Care Assistance: None Needed Report the Following to Your Physician Immediately: Shortness of Breath, Increase in Pain, Fever over 101 Degrees
--- NOTE | 2020-01-23 08:27 | Operative Report ---
Operative Report DATE OF SURGERY: 01/23/20 PREOPERATIVE DIAGNOSIS: Metastatic small cell carcinoma of the lung POSTOPERATIVE DIAGNOSIS: Same OPERATION: 1. Ultrasound directed insertion of single-lumen 8 Nicaraguan right IJ portacatheter into subclavian position. 2. Use of intraoperative fluoroscopy with interpretation thereof SURGEON: SEGUN PAIZ ANESTHESIA: LMAC TISSUE REMOVED OR ALTERED: None COMPLICATIONS: None ESTIMATED BLOOD LOSS: Scant INTRAOPERATIVE FINDINGS: See below PROCEDURE: The patient was taken of the preop holding area to the main operating room where LMAC anesthesia was induced. Arms were tucked neck exposed and the neck prepped and draped in a sterile fashion with chlorhexidine. Surgical plan surgical timeout were conducted. The skin overlying the right neck was anesthetized 1% plain lidocaine. A ade was made the skin with a 15 blade, and a micro-needle and wire were threaded into the right internal jugular vein without difficulty. Fluoroscopic evaluation demonstrated a wire into the deep venous system. A suitable site for placement of the port was chosen in the right subclavian position. Skin was anesthetized with 1% plain lidocaine. Using electrocautery and blunt dissection, a port pocket was developed large enough to accommodate a single-chamber port. The catheter was then trimmed to the appropriate length, tunnel between the 2 incisions, attached to the port, port tucked into the subclavian position with the retaining ring around the neck of the chamber. The microwire was switched over to conventional guidewire, 0.030, and the 9 Nicaraguan dilator and introducer sheath were threaded over the guidewire. The guidewire and dilator were removed, leaving the catheter in good position with the tip in the right atrium. There was no kinking of the catheter at the neck or shoulder level. The catheter was aspirated and flushed with heparinized saline. Hemostasis was excellent. Wounds closed with 3-0 Vicryl benzoin and Steri- Strips. Patient tolerated procedure well, taken recovery room stable condition.
[2020-01-23 11:29] VITALS: BP 101/73
--- NOTE | 2020-01-23 11:35 | RADIOLOGY REPORT (SQ) ---
EXAM DESCRIPTION: FLUORO/CV PLACEMENT IMAGES COMPLETED DATE/TIME: 01/23/2020 11:04 am REASON FOR STUDY: RIGHT PORT-A-CATH C34.11 MALIGNANT NEOPLASM OF UPPER LOBE, RIGHT BRONCHUS OR L COMPARISON: None. FLUOROSCOPY TIME: Less than 1 second Spot images saved to PACS. TECHNIQUE: Intra-operative images acquired during surgical procedure to evaluate progress. NUMBER OF IMAGES: 4 LIMITATIONS: None. FINDINGS: Fluoroscopy was provided for intraoperative procedure. Please refer to the operative repo rt for further discussion. IMPRESSION: IMAGE(S) OBTAINED DURING PROCEDURE. COMMENT: Quality ID 145: Final reports for procedures using fluoroscopy that document radiation exp osure indices, or exposure time and number of fluorographic images (if radiation exposure indices are not available) Please consult full operative report of the attending physician for description of the procedure. TECHNICAL DOCUMENTATION: JOB ID: [id number] 2010 [employer]- All Rights Reserved Reading location - IP/workstation name: [email or web address]
[2020-01-23] MEDS ORDERED: LIDOCAINE 2% INJ-PF (20 MG/ML) 2 ML AMPUL ONE (13:56)
== END 2020-01-23 10:12 | disposition home or self-care (01) ==
LOC: OROUT 05:38
PROVIDERS: ATTEND Surgery
DX: C34.11 Malignant neoplasm of upper lobe, right bronchus or lung (principal); J43.9 Emphysema, unspecified; F17.210 Nicotine dependence, cigarettes, uncomplicated; Z03.818 Encounter for observation for suspected exposure to other biological agents ruled out; R06.02 Shortness of breath
CPT/HCPCS: 36561; 93005; 36415; 85027; 87635; 80048; 71045; 77001; 93010; J2250; J0690; J3010; J3490 ×2; J2704; J1642

== ENCOUNTER → 2020-01-23 | Outpatient (CLI) | payer MEDICAID ==
--- NOTE | 2020-01-23 14:58 | RADIOLOGY REPORT (SQ) ---
EXAM DESCRIPTION: CT CHEST WITH; CT ABDOMEN IV CONTRAST ONLY IMAGES COMPLETED DATE/TIME: 01/23/2020 1:46 pm REASON FOR STUDY: C34.11 MALIGNANT NEOPLASM OF UPPER LOBE, RIGHT BRONCHUS OR LUNG C34.11 MALIGNANT NEOPLASM OF UPPER LOBE, RIGHT BRONCHUS OR L CONTRAST TYPE AND DOSE: contrast/concentration: Isovue 350.00 mg/ml; Total Contrast Delivered: 73.0 ml; Total Saline Delivered: 66.0 ml RENAL FUNCTION: BUN 15, creatinine 0.74 COMPARISON: CT chest dated 11/17/2019 TECHNIQUE: CT scan of the chest performed using helical scanning technique with dynamic intravenous contrast injection. Images reviewed with lung, soft tissue and bone windows. Reconstructed coronal a nd sagittal MPR images reviewed. All images stored on PACS. All CT scanners at this facility use dose modulation, iterative reconstruction, and/or weight based d osing when appropriate to reduce radiation dose to as low as reasonably achievable (ALARA). [facility]: Dose Right [facility]: CareDose [facility]: Dose Right [facility]: Teradose 4D [facility]: Smart [employer] RADIATION DOSE: CT Rad equipment meets quality standard of care and radiation dose reduction techniq ues were employed. CTDIvol: 4.5 - 5.0 mGy. DLP: 510 mGy-cm. . LIMITATIONS: None. FINDINGS: AXILLAE: No adenopathy. CHEST WALL: No masses. No subcutaneous air. LUNGS: Right perihilar mass and postobstructive pneumonic changes are significantly improved. The ma ss now measures 2.5 x 3.7 cm in greatest dimensions. Previously this measured up to 8.0 x 8.9 cm. B ilateral emphysematous changes are noted. Probable scarring in the right apex. There is a calcified nodule in the left upper lobe anteriorly which is unchanged consistent with granuloma. There is a 7 .3 mm nodule in the right base not definitely seen on prior study but could possibly a been obscured by airspace disease. There is a 2.5 mm nodule on series 6, image 75. PLEURA: No effusions. No calcifications. THYROID: No masses or significant asymmetry. HILAR AND MEDIASTINAL STRUCTURES: No identified masses or abnormal nodes. AORTA AND GREAT VESSELS: No aneurysm. No dissection. PULMONARY ARTERIES: No identified pulmonary emboli. Study not optimized for the pulmonary arteries. HEART: No pericardial effusion. HARDWARE AND LIFELINES: [id number] is in place. BONES: No significant finding. OTHER: No other significant finding. IMPRESSION: Right perihilar mass and postobstructive pneumonic changes are significantly improved. There are small right lower lobe pulmonary nodules which are indeterminate. These were not seen prev iously but may have been obscured by underlying airspace disease. COMPARISON: None. RADIATION DOSE: CT Rad equipment meets quality standard of care and radiation dose reduction techniq ues were employed. CTDIvol: 4.5 - 5.0 mGy. DLP: 510 mGy-cm. mGy. TECHNIQUE: CT scan of the abdomen performed with intravenous and oral contrast using helical scannin g technique with dynamic intravenous contrast injection. Images reviewed with lung, soft tissue and bone windows. Reconstructed coronal and sagittal MPR images reviewed. Delayed images for evaluation of the urinary system also acquired and evaluated. All images stored on PACS. All CT scanners at this facility use dose modulation, iterative reconstruction, and/or weight based d osing when appropriate to reduce radiation dose to as low as reasonably achievable (ALARA). [facility]: Dose Right [facility]: [employer] [facility]: Dose Right [facility]: Teradose 4D [facility]: [employer] FINDINGS: LIVER: Normal size. No masses. No dilated ducts. SPLEEN: Normal size. No focal lesions. PANCREAS: No masses. No significant calcifications. No adjacent inflammation or peripancreatic flui d collections. Pancreatic duct not dilated. GALLBLADDER: No identified stones by CT criteria. No inflammatory changes to suggest cholecystitis. ADRENAL GLANDS: No significant masses or asymmetry. RIGHT KIDNEY AND URETER: No solid masses. No significant calcifications. No hydronephrosis or hyd roureter. LEFT KIDNEY AND URETER: No solid masses. No significant calcifications. No hydronephrosis or hydr oureter. AORTA AND VESSELS: The study demonstrates a 5.3 x 5.6 cm infrarenal abdominal aortic aneurysm. This is new from 2006. Vascular consultation is recommended. RETROPERITONEUM: No retroperitoneal adenopathy, hemorrhage or masses. LARGE AND SMALL BOWEL: Visualized GI tract is unremarkable. APPENDIX: Not visualized. ABDOMINAL WALL: No hernia or masses. PERITONEAL CAVITY: No free air. No free fluid. No peritoneal implants or masses. PELVIS: No mass or free fluid. Normal bladder. BONES: No significant or acute findings. OTHER: No other significant finding. IMPRESSION: 1. No evidence of metastatic disease in the abdomen or pelvis. 2. 5.3 x 5.6 cm infrarenal abdominal aortic aneurysm. This is new from 2007. Please see below for recommended follow-up. COMMENT: AAA Size: Follow-up Recommendation ?5.5 cm Referral to vascular surgeon recommended *Based upon the Society for Vascular Surgery Guidelines: J Vasc Surg. 2009 Oct;50(4 Suppl):S2-49 *For aortas of maximum diameter of 2.6-2.9 cm meeting the criteria for AAA (?1.5 x proximal normal se gment) TECHNICAL DOCUMENTATION: JOB ID: [id number] Quality ID # [id number]: Final reports with documentation of one or more dose reduction techniques (e.g., Au tomated exposure control, adjustment of the mA and/or kV according to patient size, use of iterative reconstruction technique) 2010 [employer]- All Rights Reserved Reading location - IP/workstation name: [email or web address]
== END ==
LOC: RAD 12:57
PROVIDERS: ATTEND Internal Medicine
DX: C34.11 Malignant neoplasm of upper lobe, right bronchus or lung (principal); I71.4 Abdominal aortic aneurysm, without rupture
CPT/HCPCS: 71260; 74160

== ENCOUNTER 2020-02-02 22:41 | Emergency (ER) | payer MEDICAID ==
[2020-02-02 23:19] LABS: ABSOLUTE BASOPHILS # (AUTO) 0.1 10^3/uL (0.0-0.2); ABSOLUTE LYMPHOCYTES (AUTO) 1.2 10^3/uL (0.5-4.7); ABSOLUTE MONOCYTES (AUTO) 0.2 10^3/uL (0.1-1.4); ABSOLUTE NEUT (AUTO) 5.4 10^3/uL (1.7-8.2); BASOPHILS % (AUTO) 0.8 % (0-2); EOSINOPHILS % (AUTO) 0.3 % (0-6); HEMATOCRIT 34.5 % (37.9-51.0); HEMOGLOBIN 11.8 g/dL (13.5-17.0); MEAN CORPUSCULAR HEMOGLOBIN 32.3 pg (27.0-33.4); MEAN CORPUSCULAR HGB CONC 34.1 g/dL (32.0-36.0); MEAN CORPUSCULAR VOLUME 95 fl (80-97); MONOCYTES % (AUTO) 2.6 % (3-13); PLATELET COUNT 318 10^3/uL (150-450); RED BLOOD COUNT 3.65 10^6/uL (4.35-5.55); RED CELL DISTRIBUTION WIDTH 19.2 % (11.5-14.0); SEGMENTED NEUTROPHILS % (AUTO) 78.3 % (42-78); TOTAL CELLS COUNTED % (AUTO) 100 %; WHITE BLOOD COUNT 6.9 10^3/uL (4.0-10.5)
--- NOTE | 2020-02-02 23:36 | RADIOLOGY REPORT (SQ) ---
EXAM DESCRIPTION: CT CERVICAL SPINE WITHOUT IV CONTRAST COMPLETED DATE/TME: 02/02/2020 00:00 CLINICAL HISTORY: 59 years Male fall COMPARISON: None. TECHNIQUE: Contiguous axial images obtained through the cervical spine without IV contrast. Reformatted images obtained. This exam was performed according to our department optimization program which includes automated exposure control, adjustment of the mA and/or kv according to patient size and/or use of iterative reconstruction technique. FINDINGS: There is mild reversal of the normal lordosis centered at C3-C4. There is narrowing of the cervical disc interspaces with subchondral sclerosis and osteophytosis. Odontoid appears intact. Atelectasis or scarring in the right lung apex with emphysematous changes noted. C3-4: Severe central canal stenosis with severe right and moderate left neural foraminal narrowing. C4-5: Central disc protrusion with severe central canal and neural foraminal stenosis. C5-6: Generalized bulging of the disc with severe central canal and neural foraminal stenosis. C6-7: Moderate bilateral neural foraminal stenosis. [id number] catheter in the right IJ. IMPRESSION: Multilevel degenerative change with severe central canal or neuroforaminal foraminal stenosis at several levels as described No acute cervical fracture
[2020-02-02 23:37] LABS: ALBUMIN 4.6 g/dL (3.5-5.0); ALKALINE PHOSPHATASE 96 U/L (38-126); ANION GAP 9 (5-19); ASPARTATE AMINO TRANSFERASE 23 U/L (17-59); BILIRUBIN,TOTAL 0.4 mg/dL (0.2-1.3); BLOOD UREA NITROGEN 20 mg/dL (7-20); CALCIUM 9.5 mg/dL (8.4-10.2); CARBON DIOXIDE 27 mmol/L (22-30); CHLORIDE 99 mmol/L (98-107); GLUCOSE 117 mg/dL (75-110); POTASSIUM 4.2 mmol/L (3.6-5.0); TOTAL PROTEIN 7.5 g/dL (6.3-8.2)
--- NOTE | 2020-02-02 23:39 | RADIOLOGY REPORT (SQ) ---
PROCEDURE: CLINICAL HISTORY: 59 years Male AMS COMPARISON: None. TECHNIQUE: Contiguous axial CT images obtained through the brain without IV contrast. This exam was performed according to our department optimization program which includes automated exposure control, adjustment of the mA and/or kv according to patient size and/or use of iterative reconstruction technique. FINDINGS: The ventricles and sulci are prominent consistent with atrophic changes. Microvascular ischemic changes. No midline shift or mass effect. No mass lesions. No acute hemorrhage. Atherosclerotic calcifications. No fluid or significant mucosal thickening in the visualized paranasal sinuses. No depressed calvarial fractures. IMPRESSION: No acute intracranial abnormality is identified. Generalized atrophy with microvascular ischemic changes.
[2020-02-02 23:41] LABS: ACETAMINOPHEN < 10 ug/mL (10-30); ALCOHOL < 10 mg/dL (NONE DETECTED); SALICYLATE < 1.0 mg/dL (2.0-20.0)
--- NOTE | 2020-02-02 23:43 | ER Document Report ---
Entered by ARIADNE SHAFFER SCRIBE 02/02/20 [id number] Acting as scribe for:CAMPOS GRAY IV, MD ED General - General Chief Complaint: Altered Mental Status Stated Complaint: POSSIBLE SEIZURE Primary Care Provider: KARL PADILLA PA-C [Primary Care Provider] - Follow up as needed Mode of Arrival: Medic Information source: Patient, Emergency Med Personnel Notes: This 59 year old male patient brought in by EMS from home presents to the ED today with complaints of altered mental status and possible seizure that occurred just prior to arrival. Patient was found unresponsive in the bathroom by a family member. EMS reports that upon their arrival, the patient had an alte red mental status. Patient, now alert, reports that the last thing he remembers was going to the bathroom. He denies neck or head pain. Per ED nurse, patient has had x1 seizure before in the past. Patient also has a history of stage III lung cancer on chemotherapy. TRAVEL OUTSIDE OF THE [place] IN LAST 30 DAYS: No - Related Data Allergies/Adverse Reactions: No Known Allergies Allergy (Verified 02/02/20 23:00) Past Medical History - General Information source: Patient, [facility] Records - Social History Smoking Status: Current Every Day Smoker Cigarette use (# per day): Yes Chew tobacco use (# tins/day): No Smoking Education Provided: No Frequency of alcohol use: Rare Drug Abuse: None Lives with: Family Family History: Reviewed & Not Pertinent Patient has suicidal ideation: No Patient has homicidal ideation: No Pulmonary Medical History: Reports: Hx COPD, Hx Pneumonia Neurological Medical History: Reports: Hx Seizures - 40YRS AGO Malignancy Medical History: Reports Hx Lung Cancer - stage III GI Medical History: Reports: Hx Gastritis - Immunizations Hx Diphtheria, Pertussis, Tetanus Vaccination: Yes Review of Systems - Review of Systems Constitutional: No symptoms reported EENT: No symptoms reported Cardiovascular: No symptoms reported Respiratory: No symptoms reported Gastrointestinal: No symptoms reported Genitourinary: No symptoms reported Male Genitourinary: No symptoms reported Musculoskeletal: See HPI. denies: Neck pain Skin: No symptoms reported Hematologic/Lymphatic: No symptoms reported Neurological/Psychological: See HPI, Seizure, Other - Altered mental status. denies: Headaches -: Yes All other systems reviewed and negative Physical Exam - Vital signs Vitals: Resp Pulse Ox 23 H 98 02/02/20 22:44 02/02/20 22:44 - General General appearance: Other - Somnolent. Answers questions appropriately In distress: None - HEENT Head: Normocephalic, Atraumatic Eyes: Normal Pupils: Pinpoint Neck: Other - No step-off, crepitus, or deformity appreciated to posterior neck - Respiratory Respiratory status: No respiratory distress Chest status: Nontender Breath sounds: Normal Chest palpation: Normal - Cardiovascular Rhythm: Regular Heart sounds: Normal auscultation Murmur: No Friction rub: No Gallop: None auscultated - Abdominal Inspection: Normal Distension: No distension Bowel sounds: Normal Tenderness: Nontender - Abdomen soft Organomegaly: No organomegaly - Back Back: Normal, Nontender - Extremities General upper extremity: Normal inspection General lower extremity: Normal inspection - Neurological Neuro grossly intact: Yes Orientation: AAOx4 - Psychological Associated symptoms: Other - Unable to assess due to patient's medical condition - Skin Skin Temperature: Warm Skin Moisture: Dry Skin Color: Normal Course - Re-evaluation Re-evalutation: 02/03/20 02:33 Results of ED MSE discussed with patient. Patient is alert and oriented to person place and time. Patient states he feels "fine." All questions were answered. Emergency signs and symptoms, reasons to return to the emergency department discussed with patient. - Vital Signs Vital signs: Temp Pulse Resp BP Pulse Ox 98.0 F 64 16 119/87 H 96 02/02/20 22:56 02/02/20 22:56 02/02/20 22:56 02/03/20 02:00 02/03/20 02:01 - Laboratory Result Diagrams: 02/02/20 22:49 02/02/20 22:49 Laboratory results interpreted by me: 02/02/20 02/02/20 22:49 22:49 RBC 3.65 L Hgb 11.8 L Hct 34.5 L RDW 19.2 H Bucks % (Auto) 2.6 L Seg Neutrophils % 78.3 H Sodium 134.8 L Glucose 117 H Salicylates < 1.0 L Acetaminophen < 10 L - EKG Interpretation by Me Additional EKG results interpreted by me: 02/03/20 02:34 EKG obtained on 02/02/2020 at 2250 hrs. was interpreted by this MD. Findings: Normal sinus rhythm, rate 63, normal axis, P waves preceding QRS complexes, QRS complexes appear narrow, there are no obvious patterns of ST segment elevation or depression present to suggest acute myocardial ischemia or infarction. Impression: Normal sinus rhythm with nonspecific ST segments. - Consults DR. MARKS Time consulted: 02:33 - Results of ED MSE discussed with Dr. Marks. Patient's current mental status and clinical exam discussed with Dr. Marks as well along with all relevant lab and imaging findings. She feels it is safe to discharge t he patient home with outpatient follow-up. Reason for consultation: 02/03/20 02:36 Transient altered mental status Consulted provider: follow-up in office Discharge - Discharge Clinical Impression: Transient alteration of awareness Condition: Good Disposition: HOME, SELF-CARE Additional Instructions: Return to the Emergency Department without delay if any worse. Altered Mental Status An altered mental status is a change in the normal functioning of the brain. This alteration of function can range from minor decreased brain function with some forgetfulness and confusion to complete loss of consciousness and coma. There are many possible causes of an altered mental status and include brain injuries such as trauma or strokes, problems with oxygen supply to the brain, fever and infections of the brain and/or elsewhere in the body, metabolic abnormalities such as low or high blood sugar, overdoses or excessive medication ingestion, and mental and psychiatric illnesses. Sometimes the altered mental status resolves and a definite cause is not determined. If a cause for your altered mental status was found, it has likely been corrected. Your evaluation has not shown any condition that requires that you be admitted to the hospital. It is believed that you are safe to leave and return to your home. If you have a return of your symptoms, you should return f or re-evaluation. HOME CARE INSTRUCTIONS & INFORMATION: Thank you for choosing us for your medica l needs. We hope you're satisfied with the care you received. After you leave, you must properly care for your problem and, at the same time, observe its progress. Any condition can change. Some illnesses can change rapidly over hours or days. If your condition worsens, return to the Emergency Department or see your physician promptly. ABOUT YOUR X-RAYS AND EKG'S: If you had an EKG or X-rays taken, they have been read by the Emergency Physician. The X-rays and EKG's will also be read by a Radiologist or Jewelry Manager within 24 hours. If discrepancies are noted, you will be notified by telephone. Please be certain the ED has a correct telephone number & address where you can be reached. Also, realize that some fractures or abnormalities do not show up on initial X-rays. If your symptoms continue, see your physician. ABOUT YOUR LABORATORY TEST: If you had laboratory tests, the results have been reviewed by the Emergency Physician. Some test results (for example cultures) may not be available for several days. You will be contacted if any test result shows you need additional treatment. Please be certain the ED has a correct telephone number and address where you can be reached. ABOUT YOUR MEDICATIONS: You will receive instructions on how to take your medicine on the prescription label you receive. Additional information may be provided by the Pharmacy. If you have questions afterwards, call the ED for clarification or further instructions. Some prescribed medications may cause drowsiness. Do not perform tasks such as driving a car or operating machinery without consulting your Pharmacist. If you feel you need a refill of pain medication, your condition will need re-evaluation. Please do not call for a refill of any medication. ABOUT YOUR SIGNATURE: Signature of this document acknowledges to followin. Understanding that you received emergency treatment and that you may be released before al medical problems are known or treated. Please be certain the ED has a correct phone number & address where you can be reached. 2. Acknowledgement that you will arrange for follow-up care as recommended. 3. Authorization for the Emergency Physician to provide information to your follow-up Physician in order to maximize your care. AT ANY TIME, IF YOUR SYMPTOMS CHANGE SIGNIFICANTLY OR WORSEN OR YOU DEVELOP NEW SYMPTOMS, RETURN TO THE EMERGENCY DEPARTMENT IMMEDIATELY FOR RE-EVALUATION. OUR GOAL IS TO PROVIDE EXCELLENT MEDICAL CARE! WE HOPE THAT WE HAVE MET YOUR EXPECTATIONS DURING YOUR EMERGENCY DEPARTMENT VISIT AND THAT YOU FEEL YOU HAVE RECEIVED EXCELLENT CARE! Referrals: KARL PADILLA PA-C [Primary Care Provider] - Follow up as needed KAVON BAUTISTA MD [ACTIVE STAFF] - 02/04/20 I personally performed the services described in the documentation, reviewed and edited the documentation which was dictated to the scribe in my presence, and it accurately records my words and actions.
[2020-02-03] MEDS ORDERED: NORMAL SALINE 1000 ML 1,000 ML IV ONE (01:01)
[2020-02-03 03:05] VITALS: BP 130/85
--- NOTE | 2020-02-03 09:18 | EKG REPORT ---
SEVERITY:- NORMAL ECG - SINUS RHYTHM : Confirmed by: Luisito Marcus MD 03-Feb-2020 09:17:46
== END 2020-02-03 03:15 | disposition home or self-care (01) ==
LOC: ER 22:41
DX: R40.4 Transient alteration of awareness (principal); R56.9 Unspecified convulsions; R40.0 Somnolence; C34.90 Malignant neoplasm of unspecified part of unspecified bronchus or lung; J44.9 Chronic obstructive pulmonary disease, unspecified; F17.210 Nicotine dependence, cigarettes, uncomplicated; Z79.899 Other long term (current) drug therapy
CPT/HCPCS: 93005; 99285; 96360; 36415; 80307 ×3; 83735; 85025; 80053; 84484; 70450; 72125; 93010; J7030

== ENCOUNTER → 2020-03-17 | Outpatient (CLI) | payer MEDICAID ==
--- NOTE | 2020-03-17 10:08 | RADIOLOGY REPORT (SQ) ---
EXAM DESCRIPTION: CT CHEST WITH; CT ABD/PELVIS WITH IV ONLY IMAGES COMPLETED DATE/TIME: 03/17/2020 8:23 am REASON FOR STUDY: LUNG CA (C34.11) C34.11 MALIGNANT NEOPLASM OF UPPER LOBE, RIGHT BRONCHUS OR L CONTRAST TYPE AND DOSE: contrast/concentration: Isovue 350.00 mmol/ml; Total Contrast Delivered: 73. 0 ml; Total Saline Delivered: 66.0 ml RENAL FUNCTION: Creatinine 0.9 COMPARISON: None. TECHNIQUE: CT scan of the chest performed using helical scanning technique with dynamic intravenous contrast injection. Images reviewed with lung, soft tissue and bone windows. Reconstructed coronal a nd sagittal MPR images reviewed. All images stored on PACS. All CT scanners at this facility use dose modulation, iterative reconstruction, and/or weight based d osing when appropriate to reduce radiation dose to as low as reasonably achievable (ALARA). [facility]: Dose Right [facility]: CareDose [facility]: Dose Right [facility]: Teradose 4D [facility]: jiffstore RADIATION DOSE: CT Rad equipment meets quality standard of care and radiation dose reduction techniq ues were employed. CTDIvol: 4.4 - 4.6 mGy. DLP: 672 mGy-cm. . LIMITATIONS: None. FINDINGS: AXILLAE: No pathologic adenopathy. 2 small stable left axillary nodes are present. CHEST WALL: No masses. No subcutaneous air. LUNGS: Stable linear scarring in the right upper lobe. The dominant right upper lobe mass measures 2 .3 x 3.5 cm in greatest dimensions. Previously this measured 2.6 x 3.7 cm. Subpleural spiculated no dule measures 2.3 cm on today's study compared approximately 2.7 cm on previous exam. Numerous stabl e small additional pulmonary nodules in both the upper and lower lobes. These range in size from gab roximately 3.3 mm up to 7.2 mm. No new nodules are identified. There are bilateral centrilobular em physematous changes. PLEURA: No effusions. No calcifications. THYROID: No masses or significant asymmetry. HILAR AND MEDIASTINAL STRUCTURES: Stable mild right hilar fullness no discrete enlarged lymph nodes. AORTA AND GREAT VESSELS: No aneurysm. No dissection. PULMONARY ARTERIES: No identified pulmonary emboli. Study not optimized for the pulmonary arteries. HEART: No pericardial effusion. HARDWARE AND LIFELINES: Right-sided [id number]-[id number] is in place. BONES: No significant finding. OTHER: No other significant finding. IMPRESSION: The dominant right upper lobe mass measures 2.3 x 3.5 cm in greatest dimensions. Previo usly this measured 2.6 x 3.7 cm. Subpleural right upper lobe spiculated nodule measures 2.3 cm on to day's study compared to 2.7 cm on previous exam. Numerous smaller bilateral pulmonary nodules are pr esent ranging in size from 3.3 mm up to 7.2 mm. No new nodules are identified. The smaller nodules have shown no interval growth. COMPARISON: None. RADIATION DOSE: CT Rad equipment meets quality standard of care and radiation dose reduction techniq ues were employed. CTDIvol: 4.4 - 4.6 mGy. DLP: 672 mGy-cm. mGy. TECHNIQUE: CT scan of the abdomen and pelvis performed with intravenous and oral contrast using vee gerardo scanning technique with dynamic intravenous contrast injection. Images reviewed with lung, soft tissue and bone windows. Reconstructed coronal and sagittal MPR images reviewed. Delayed images for evaluation of the urinary system also acquired and evaluated. All images stored on PACS. All CT scanners at this facility use dose modulation, iterative reconstruction, and/or weight based d osing when appropriate to reduce radiation dose to as low as reasonably achievable (ALARA). [facility]: Dose Right [facility]: SureCare [facility]: Dose Right [facility]: Teradose 4D [facility]: jiffstore FINDINGS: LIVER: Normal size. No masses. No dilated ducts. Small calcification is noted in the pos terior right lobe. SPLEEN: Normal size. No focal lesions. Single calcification is identified. Most likely granuloma. PANCREAS: No masses. No significant calcifications. No adjacent inflammation or peripancreatic flui d collections. Pancreatic duct not dilated. GALLBLADDER: No identified stones by CT criteria. No inflammatory changes to suggest cholecystitis. ADRENAL GLANDS: No significant masses or asymmetry. RIGHT KIDNEY AND URETER: No solid masses. No significant calcifications. No hydronephrosis or hyd roureter. LEFT KIDNEY AND URETER: No solid masses. No significant calcifications. No hydronephrosis or hydr oureter. AORTA AND VESSELS: There is a 5.5 x 5.5 cm infrarenal abdominal abdominal aortic aneurysm. It extend s to the aortic bifurcation. The aneurysm is grossly stable in size when compared to prior study. RETROPERITONEUM: No retroperitoneal adenopathy, hemorrhage or masses. LARGE AND SMALL BOWEL: No dilatation. No masses. No wall thickening. APPENDIX: Normal. ABDOMINAL WALL: No hernia or masses. PERITONEAL CAVITY: No free air. No free fluid. No peritoneal implants or masses. PELVIS: No mass or free fluid. Normal bladder. BONES: No significant or acute findings. OTHER: No other significant finding. IMPRESSION: No evidence of metastatic disease in the abdomen or pelvis. 5.5 x 5.5 cm infrarenal abdominal aortic aneurysm. This is grossly stable from prior exam. Please s ee below for recommended follow-up. COMMENT: AAA Size: Follow-up Recommendation ?5.5 cm Referral to vascular surgeon recommended *Based upon the Society for Vascular Surgery Guidelines: J Vasc Surg. 2009 Oct;50(4 Suppl):S2-49 *For aortas of maximum diameter of 2.6-2.9 cm meeting the criteria for AAA (?1.5 x proximal normal se gment) TECHNICAL DOCUMENTATION: JOB ID: [id number] Quality ID # [id number]: Final reports with documentation of one or more dose reduction techniques (e.g., Au tomated exposure control, adjustment of the mA and/or kV according to patient size, use of iterative reconstruction technique) 2010 [employer]- All Rights Reserved Reading location - IP/workstation name: [email or web address]
--- NOTE | 2020-03-17 10:08 | RADIOLOGY REPORT (SQ) ---
EXAM DESCRIPTION: CT CHEST WITH; CT ABD/PELVIS WITH IV ONLY IMAGES COMPLETED DATE/TIME: 03/17/2020 8:23 am REASON FOR STUDY: LUNG CA (C34.11) C34.11 MALIGNANT NEOPLASM OF UPPER LOBE, RIGHT BRONCHUS OR L CONTRAST TYPE AND DOSE: contrast/concentration: Isovue 350.00 mmol/ml; Total Contrast Delivered: 73. 0 ml; Total Saline Delivered: 66.0 ml RENAL FUNCTION: Creatinine 0.9 COMPARISON: None. TECHNIQUE: CT scan of the chest performed using helical scanning technique with dynamic intravenous contrast injection. Images reviewed with lung, soft tissue and bone windows. Reconstructed coronal a nd sagittal MPR images reviewed. All images stored on PACS. All CT scanners at this facility use dose modulation, iterative reconstruction, and/or weight based d osing when appropriate to reduce radiation dose to as low as reasonably achievable (ALARA). [facility]: Dose Right [facility]: CareDose [facility]: Dose Right [facility]: Teradose 4D [facility]: [place] RADIATION DOSE: CT Rad equipment meets quality standard of care and radiation dose reduction techniq ues were employed. CTDIvol: 4.4 - 4.6 mGy. DLP: 672 mGy-cm. . LIMITATIONS: None. FINDINGS: AXILLAE: No pathologic adenopathy. 2 small stable left axillary nodes are present. CHEST WALL: No masses. No subcutaneous air. LUNGS: Stable linear scarring in the right upper lobe. The dominant right upper lobe mass measures 2 .3 x 3.5 cm in greatest dimensions. Previously this measured 2.6 x 3.7 cm. Subpleural spiculated no dule measures 2.3 cm on today's study compared approximately 2.7 cm on previous exam. Numerous stabl e small additional pulmonary nodules in both the upper and lower lobes. These range in size from gba roximately 3.3 mm up to 7.2 mm. No new nodules are identified. There are bilateral centrilobular em physematous changes. PLEURA: No effusions. No calcifications. THYROID: No masses or significant asymmetry. HILAR AND MEDIASTINAL STRUCTURES: Stable mild right hilar fullness no discrete enlarged lymph nodes. AORTA AND GREAT VESSELS: No aneurysm. No dissection. PULMONARY ARTERIES: No identified pulmonary emboli. Study not optimized for the pulmonary arteries. HEART: No pericardial effusion. HARDWARE AND LIFELINES: Right-sided Cqtyjm-[id number]-Cuiz is in place. BONES: No significant finding. OTHER: No other significant finding. IMPRESSION: The dominant right upper lobe mass measures 2.3 x 3.5 cm in greatest dimensions. Previo usly this measured 2.6 x 3.7 cm. Subpleural right upper lobe spiculated nodule measures 2.3 cm on to day's study compared to 2.7 cm on previous exam. Numerous smaller bilateral pulmonary nodules are pr esent ranging in size from 3.3 mm up to 7.2 mm. No new nodules are identified. The smaller nodules have shown no interval growth. COMPARISON: None. RADIATION DOSE: CT Rad equipment meets quality standard of care and radiation dose reduction techniq ues were employed. CTDIvol: 4.4 - 4.6 mGy. DLP: 672 mGy-cm. mGy. TECHNIQUE: CT scan of the abdomen and pelvis performed with intravenous and oral contrast using vee gerardo scanning technique with dynamic intravenous contrast injection. Images reviewed with lung, soft tissue and bone windows. Reconstructed coronal and sagittal MPR images reviewed. Delayed images for evaluation of the urinary system also acquired and evaluated. All images stored on PACS. All CT scanners at this facility use dose modulation, iterative reconstruction, and/or weight based d osing when appropriate to reduce radiation dose to as low as reasonably achievable (ALARA). [facility]: Dose Right [facility]: SureCare [facility]: Dose Right [facility]: Teradose 4D [facility]: [place] FINDINGS: LIVER: Normal size. No masses. No dilated ducts. Small calcification is noted in the pos terior right lobe. SPLEEN: Normal size. No focal lesions. Single calcification is identified. Most likely granuloma. PANCREAS: No masses. No significant calcifications. No adjacent inflammation or peripancreatic flui d collections. Pancreatic duct not dilated. GALLBLADDER: No identified stones by CT criteria. No inflammatory changes to suggest cholecystitis. ADRENAL GLANDS: No significant masses or asymmetry. RIGHT KIDNEY AND URETER: No solid masses. No significant calcifications. No hydronephrosis or hyd roureter. LEFT KIDNEY AND URETER: No solid masses. No significant calcifications. No hydronephrosis or hydr oureter. AORTA AND VESSELS: There is a 5.5 x 5.5 cm infrarenal abdominal abdominal aortic aneurysm. It extend s to the aortic bifurcation. The aneurysm is grossly stable in size when compared to prior study. RETROPERITONEUM: No retroperitoneal adenopathy, hemorrhage or masses. LARGE AND SMALL BOWEL: No dilatation. No masses. No wall thickening. APPENDIX: Normal. ABDOMINAL WALL: No hernia or masses. PERITONEAL CAVITY: No free air. No free fluid. No peritoneal implants or masses. PELVIS: No mass or free fluid. Normal bladder. BONES: No significant or acute findings. OTHER: No other significant finding. IMPRESSION: No evidence of metastatic disease in the abdomen or pelvis. 5.5 x 5.5 cm infrarenal abdominal aortic aneurysm. This is grossly stable from prior exam. Please s ee below for recommended follow-up. COMMENT: AAA Size: Follow-up Recommendation ?5.5 cm Referral to vascular surgeon recommended *Based upon the Society for Vascular Surgery Guidelines: J Vasc Surg. 2009 Oct;50(4 Suppl):S2-49 *For aortas of maximum diameter of 2.6-2.9 cm meeting the criteria for AAA (?1.5 x proximal normal se gment) TECHNICAL DOCUMENTATION: JOB ID: [id number] Quality ID # [id number]: Final reports with documentation of one or more dose reduction techniques (e.g., Au tomated exposure control, adjustment of the mA and/or kV according to patient size, use of iterative reconstruction technique) 2010 [employer]- All Rights Reserved Reading location - IP/workstation name: [email or web address]
== END ==
LOC: RAD 07:49
PROVIDERS: ATTEND Internal Medicine
DX: C34.11 Malignant neoplasm of upper lobe, right bronchus or lung (principal); I71.4 Abdominal aortic aneurysm, without rupture
CPT/HCPCS: 71260; 74177; 82565

== ENCOUNTER 2020-05-29 18:50 | Emergency (ER) | payer MEDICAID ==
[2020-05-29 19:49] LABS: ABSOLUTE EOSINOPHILS # (AUTO) 0.3 10^3/uL (0.0-0.6); ABSOLUTE LYMPHOCYTES (AUTO) 1.2 10^3/uL (0.5-4.7); ABSOLUTE MONOCYTES (AUTO) 0.8 10^3/uL (0.1-1.4); ABSOLUTE NEUT (AUTO) 7.9 10^3/uL (1.7-8.2); BASOPHILS % (AUTO) 0.5 % (0-2); EOSINOPHILS % (AUTO) 2.9 % (0-6); HEMATOCRIT 39.4 % (37.9-51.0); HEMOGLOBIN 13.8 g/dL (13.5-17.0); MEAN CORPUSCULAR HEMOGLOBIN 34.5 pg (27.0-33.4); MEAN CORPUSCULAR VOLUME 99 fl (80-97); PLATELET COUNT 283 10^3/uL (150-450); RED CELL DISTRIBUTION WIDTH 14.3 % (11.5-14.0); SEGMENTED NEUTROPHILS % (AUTO) 76.6 % (42-78); TOTAL CELLS COUNTED % (AUTO) 100 %; WHITE BLOOD COUNT 10.3 10^3/uL (4.0-10.5)
[2020-05-29 20:09] LABS: ALBUMIN 4.2 g/dL (3.5-5.0); ALKALINE PHOSPHATASE 91 U/L (38-126); ANION GAP 9 (5-19); ASPARTATE AMINO TRANSFERASE 23 U/L (17-59); BILIRUBIN,DIRECT 0.4 mg/dL (0.0-0.4); BILIRUBIN,TOTAL 0.6 mg/dL (0.2-1.3); BLOOD UREA NITROGEN 9 mg/dL (7-20); CALCIUM 9.6 mg/dL (8.4-10.2); CARBON DIOXIDE 26 mmol/L (22-30); CHLORIDE 103 mmol/L (98-107); GLUCOSE 95 mg/dL (75-110); POTASSIUM 4.2 mmol/L (3.6-5.0); TOTAL PROTEIN 6.9 g/dL (6.3-8.2)
[2020-05-29] MEDS ORDERED: NORMAL SALINE 1000 ML 1,000 ML IV ONE (21:07)
--- NOTE | 2020-05-29 21:09 | ER Document Report ---
ED General - General Chief Complaint: Constipation Stated Complaint: CONSTIPATION Time Seen by Provider: 05/29/20 20:52 Primary Care Provider: KAVON BAUTISTA MD [Primary Care Provider] - Follow up as needed TRAVEL OUTSIDE OF THE [place] IN LAST 30 DAYS: No - HPI Severity: Severe Pain Level: 5 Context: This is a 59-year-old male with a history of lung cancer,currently being seen by Dr. Bautista, on oxycodone for pain, presenting complaining of constipation for the past 10 days. Patient states that the pain he has is localized to his anus and he has to strain a great deal to pass any stool. Patient states since 12 noon today, he has been unable to pass any stool at all and he says the pain is rectum is getting worse. Patient denies any anterior abdominal pain; patient does have a history of a AAA that reportedly needs surgery but the vascular surgeon has put that on hold because of the patient's lab work. Patient is getting chemotherapy every 3 weeks with the last chemotherapy treatment being approximately 2 weeks ago. Patient states that the oxycodone he is taking is the exacerbating factor in the cause of his constipation and that he has not found anything to alleviate his symptoms. Patient denies chest pain, shortness of breath, cough (dry or productive), loss of sense of taste or loss of sense of smell, known contact with COVID positive persons are persons under investigation for COVID. Patient denies nausea and vomiting. Patient states that he has had the symptoms in the past but the constipation never lasts more than 5 days. Patient denies regular laxative use. Associated symptoms: Other - See HPI Exacerbated by: Other - See HPI Relieved by: Other - See HPI Similar symptoms previously: Yes - Related Data Allergies/Adverse Reactions: No Known Allergies Allergy (Verified 02/02/20 23:00) Past Medical History - General Information source: Patient - Social History Smoking Status: Smoker,Current Status Unk Frequency of alcohol use: Occasional Family History: Reviewed & Not Pertinent Patient has suicidal ideation: No Patient has homicidal ideation: No - Past Medical History Cardiac Medical History: Denies: Hx Coronary Artery Disease, Hx Heart Attack, Hx Hypertension Pulmonary Medical History: Reports: Hx COPD, Hx Pneumonia Denies: Hx Asthma, Hx Bronchitis Neurological Medical History: Reports: Hx Seizures - 40YRS AGO. Denies: Hx Cerebrovascular Accident Renal/ Medical History: Denies: Hx Peritoneal Dialysis Malignancy Medical History: Reports Hx Lung Cancer - stage III GI Medical History: Reports: Hx Gastritis Musculoskeletal Medical History: Denies Hx Arthritis - Immunizations Hx Diphtheria, Pertussis, Tetanus Vaccination: Yes Review of Systems - Review of Systems Constitutional: No symptoms reported EENT: No symptoms reported Cardiovascular: No symptoms reported Respiratory: No symptoms reported Gastrointestinal: Constipation, Other - Rectal pain. denies: Nausea, Vomiting Genitourinary: No symptoms reported Male Genitourinary: No symptoms reported Musculoskeletal: No symptoms reported Skin: No symptoms reported Hematologic/Lymphatic: No symptoms reported Neurological/Psychological: No symptoms reported -: Yes All other systems reviewed and negative Physical Exam - Vital signs Vitals: Resp Pulse Ox 17 99 05/29/20 19:26 05/29/20 19:26 - Notes Notes: CONSTITUTIONAL [Vital signs reviewed, Patient appears uncomfortable, Alert and oriented X 3, Normal stature.] HEAD [Atraumatic, Normocephalic.] EYES [Eyes are normal to inspection, No discharge from eyes, Extraocular muscles intact, Sclera are normal, Conjunctiva are normal.] NECK [Normal ROM, No jugular venous distention, No meningeal signs, no carotid bruit.] RESPIRATORY CHEST [Chest is nontender, Breath sounds normal, No respiratory distress.] CARDIOVASCULAR [RRR, No murmurs, Normal S1 S2, No rub, No gallop.] ABDOMEN [Abdomen is nontender, No pulsatile masses, No other masses, Bowel sounds quiet, No distension, No peritoneal signs, No hernias.] BACK [There is no CVA Tenderness, There is no tenderness to palpation, Normal inspection.] UPPER EXTREMITY [Inspection normal, No cyanosis, No clubbing, No edema, 2+ radial pulses.] LOWER EXTREMITY [Inspection normal, No cyanosis, No clubbing, No edema, No calf tenderness, 2+ femoral pulses.] NEURO [No focal motor deficits, No focal sensory deficits, Speech normal.] SKIN [Skin is warm, Skin is dry, Skin is normal color.] LYMPHATIC [No adenopathy in neck.] PSYCHIATRIC [Normal affect. ] Course - Re-evaluation Re-evalutation: 05/29/20 23:26 Results of ED MSE discussed with patient. All questions were answered prior to discharge. Emergency signs and symptoms, reasons to return to the emergency department discussed with patient. Patient told to follow-up with his oncologist tomorrow. Medical decision making: There is a area of opacification and the patient's right upper lung field noted on the acute abdominal series. Review of prior chest x-rays of shown opacifications in the right upper lobe region in the past. Patient does have a history of lung cancer. Currently he does not have any respiratory complaints, fever, cough or complaint of shortness of breath. At this time I do not think addition of a antibiotic is warranted. The patient is just instructed to follow-up with his oncologist tomorrow. Furthermore patient has CT done within the past 2 months that shows spiculations and nodules in his right upper lobe. Given the patient is showing no evidence of sirs, active infection, sepsis or other respiratory issue, I do not feel that intervention at this time is warranted. In terms of the patient's history of AAA, the patient states he feels better after the enema and does not complain of abdominal pain. I do not believe that the patient's AAA is an emergent issue at this time that needs to be addressed during this visit. This MD is going to put the patient on Colace, Relistor and Anusol HC cream for his symptoms. 05/29/20 23:29 05/29/20 23:35 - Vital Signs Vital signs: Temp Pulse Resp BP Pulse Ox 99.3 F 21 H 109/76 98 05/29/20 19:31 05/29/20 21:42 05/29/20 21:42 05/29/20 21:42 - Laboratory Result Diagrams: 05/29/20 19:32 05/29/20 19:32 Laboratory results interpreted by me: 05/29/20 19:32 RBC 4.00 L MCV 99 H MCH 34.5 H RDW 14.3 H Lymph % (Auto) 12.0 L - Diagnostic Test Radiology reviewed: Image reviewed, Reports reviewed Discharge - Discharge Clinical Impression: Constipation due to opioid therapy Condition: Stable Disposition: HOME, SELF-CARE Instructions: Constipation ([facility]) Additional Instructions: Return to the Emergency Department without delay if any worse. HOME CARE INSTRUCTIONS & INFORMATION: Thank you for choosing us for your medical needs. We hope you're satisfied with the care you received. After you leave, you must properly care for your problem and, at the same time, observe its progress. Any condition can change. Some illnesses can change rapidly over hours or days. If your condition worsens, return to the Emergency Department or see your physician promptly. ABOUT YOUR X-RAYS AND EKG'S: If you had an EKG or X-rays taken, they have been read by the Emergency Physician. The X-rays and EKG's will also be read by a Radiologist or Strategy Intern within 24 hours. If discrepancies are noted, you will be notified by telephone. Please be certain the ED has a correct telephone number & address where you can be reached. Also, realize that some fractures or abnormalities do not show up on initial X-rays. If your symptoms continue, see your physician. ABOUT YOUR LABORATORY TEST: If you had laboratory tests, the results have been reviewed by the Emergency Physician. Some test results (for example cultures) may not be available for several days. You will be contacted if any test result shows you need additional treatment. Please be certain the ED has a correct telephone number and address where you can be reached. ABOUT YOUR MEDICATIONS: You will receive instructions on how to take your medicine on the prescription label you receive. Additional information may be provided by the Pharmacy. If you have questions afterwards, call the ED for c larification or further instructions. Some prescribed medications may cause drowsiness. Do not perform tasks such as driving a car or operating machinery without consulting your Pharmacist. If you feel you need a refill of pain medication, your condition will need re-evaluation. Please do not call for a refill of any medication. ABOUT YOUR SIGNATURE: Signature of this document acknowledges to followin. Understanding that you received emergency treatment and that you may be released before al medical problems are known or treated. Please be certain the ED has a correct phone number & address where you can be reached. 2. Acknowledgement that you will arrange for follow-up care as recommended. 3. Authorization for the Emergency Physician to provide information to your follow-up Physician in order to maximize your care. AT ANY TIME, IF YOUR SYMPTOMS CHANGE SIGNIFICANTLY OR WORSEN OR YOU DEVELOP NEW SYMPTOMS, RETURN TO THE EMERGENCY DEPARTMENT IMMEDIATELY FOR RE-EVALUATION. OUR GOAL IS TO PROVIDE EXCELLENT MEDICAL CARE! WE HOPE THAT WE HAVE MET YOUR EXPECTATIONS DURING YOUR EMERGENCY DEPARTMENT VISIT AND THAT YOU FEEL YOU HAVE RECEIVED EXCELLENT CARE! Prescriptions: Hydrocortisone [Anusol-Hc] 30 gm TP TID #30 cream..g. Docusate Sodium [Colace 100 mg Capsule] 100 mg PO BID #30 capsule Methylnaltrexone [place] [Relistor] 450 mg PO QAM #21 tablet Referrals: KAVON BAUTISTA MD [Primary Care Provider] - Follow up as needed
[2020-05-29] MEDS ORDERED: MINERAL OIL 30 ML UDCUP PR ONE (22:03)
[2020-05-29] MEDS ORDERED: LIDOCAINE 4% TOPICAL SOLN 50 ML TOP ONE (22:04)
--- NOTE | 2020-05-29 22:14 | RADIOLOGY REPORT (SQ) ---
XR ABDOMEN SUPINE AND ERECT WITH CHEST (ABD ACUTE SERIES) HISTORY: No bowel movement for 10 days. COMPARISON: None. FINDINGS: There is a very large amount of stool in the rectal vault suggestive of constipation. No bowel obstruction is seen. No free air. Patchy opacity in the right upper lung zone with a right central venous line noted. The bony structures are preserved. IMPRESSION: 1. Large amount stool in the rectum suggestive of fecal impaction and constipation. 2. No bowel obstruction. 3. Patchy opacity in the right upper lung zone.
[2020-05-30 00:41] VITALS: BP 105/76
== END 2020-05-30 00:51 | disposition home or self-care (01) ==
LOC: ER 18:50
DX: K59.03 Drug induced constipation (principal); K62.89 Other specified diseases of anus and rectum; Z85.118 Personal history of other malignant neoplasm of bronchus and lung; Z79.899 Other long term (current) drug therapy; F17.200 Nicotine dependence, unspecified, uncomplicated; J44.9 Chronic obstructive pulmonary disease, unspecified
CPT/HCPCS: 99284; 96360; 96361; 36415; 83690; 85025; 80053; 74022; J3490 ×2; J7030

== ENCOUNTER → 2020-06-05 | Outpatient (CLI) | payer MEDICAID ==
--- NOTE | 2020-06-05 13:11 | RADIOLOGY REPORT (SQ) ---
EXAM DESCRIPTION: CT CHEST WITH; CT ABD/PELVIS WITH IV ONLY IMAGES COMPLETED DATE/TIME: 06/05/2020 8:42 am REASON FOR STUDY: C34.11 MALIGNANT NEOPLASM OF UPPER LOBE, RIGHT BRONCHUS OR LUNG C34.11 MALIGNANT NEOPLASM OF UPPER LOBE, RIGHT BRONCHUS OR L RENAL FUNCTION: BUN 13; creatinine 0.9 TECHNIQUE: CT scan of the chest performed using helical scanning technique with dynamic intravenous contrast injection. Images reviewed with lung, soft tissue and bone windows. Reconstructed coronal a nd sagittal MPR images reviewed. All images stored on PACS. CT scan of the abdomen and pelvis performed with intravenous and without oral contrastusing helical s panchito technique with dynamic intravenous contrast injection. Images reviewed with lung, soft tissu e and bone windows. Reconstructed coronal and sagittal MPR images reviewed. Delayed images for eval uation of the urinary system also acquired and evaluated. All images stored on PACS. All CT scanners at this facility use dose modulation, iterative reconstruction, and/or weight based d osing when appropriate to reduce radiation dose to as low as reasonably achievable (ALARA). [facility]: Dose Right [facility]: CareDose [facility]: Dose Right [facility]: Teradose 4D [facility]: Smart Matches [employer] RADIATION DOSE: CT Rad equipment meets quality standard of care and radiation dose reduction techniq ues were employed. CTDIvol: 4.5 - 4.6 mGy. DLP: 648 mGy-cm. . LIMITATIONS: None. FINDINGS: CHEST: LUNGS AND PLEURA: Grossly stable appearance of a right perihilar mass, measuring on the order of 2.7 x 3.6 x 2.6 cm on today's examination (previously 2.6 x 3.7 cm). Postobstructive pneumonic changes d emonstrating interval improvement. There is a residual nodular component measuring on the order of 2 .6 x 0.9 x 0.7 cm. Multiple 4 to 7 mm subpleural nodules seen within the right middle, right lower, and left lower lobes do not appear to be significantly changed in the study interval. Incidental not e is again made of scattered partially calcified granulomas. No acute findings. Background centrilo bular and paraseptal emphysematous changes. Stable right apical scarring. HILAR AND MEDIASTINAL STRUCTURES: No identified masses or abnormal nodes. HEART AND VASCULAR STRUCTURES: No aneurysm or dissection. No central pulmonary emboli. No pericardi al effusion. HARDWARE: Right anterior chest wall Port-A-Cath terminates at the cavoatrial junction. THYROID AND OTHER SOFT TISSUES: No masses. No adenopathy. BONES: No significant finding. OTHER: No other significant finding. ABDOMEN AND PELVIS: LIVER: Normal size. No masses. No dilated ducts. SPLEEN: Normal size. No focal lesions. PANCREAS: No masses. No significant calcifications. No adjacent inflammation or peripancreatic fluid collections. Pancreatic duct not dilated. GALLBLADDER: No identified stones by CT criteria. No inflammatory changes to suggest cholecystitis. ADRENAL GLANDS: No significant masses or asymmetry. RIGHT KIDNEY AND URETER: No solid masses. No significant calcification. No hydronephrosis or hydroure ter. LEFT KIDNEY AND URETER: No solid masses. No significant calcification. No hydronephrosis or hydrouret er. AORTA AND VESSELS: Infrarenal abdominal aortic aneurysm measuring 5.7 x 5.7 cm on today's examination . Slight differences in measurement in the study interval may be due in part to a slight differences in slice selection. RETROPERITONEUM: No retroperitoneal adenopathy, hemorrhage or masses. BOWEL AND PERITONEAL CAVITY: No masses or inflammatory changes. No free fluid or peritoneal masses. APPENDIX: Not visualized. ABDOMINAL WALL: No masses. No hernias. PELVIS: No mass or free fluid. Normal bladder. BONES: No acute findings. Degenerative changes are seen of the hips and spine. Incidental note is m marleny of spondylolysis at the lumbosacral junction; no spondylolisthesis. OTHER: No other significant finding. IMPRESSION: 1. Re- demonstration of a right perihilar lung mass with continued improvement in the a ppearance of postobstructive pneumonic changes. Other chronic incidental pulmonary findings describe d above appear stable. 2. No evidence of metastatic disease. Re- demonstration of a 5.7 x 5.7 infrarenal abdominal aortic aneurysm. TECHNICAL DOCUMENTATION: JOB ID: [id number] Quality ID # [id number]: Final reports with documentation of one or more dose reduction techniques (e.g., Au tomated exposure control, adjustment of the mA and/or kV according to patient size, use of iterative reconstruction technique) 2010 [employer]- All Rights Reserved COMPARISON: 01/23/2020 and 03/17/2020 CONTRAST TYPE AND DOSE: contrast/concentration: Isovue 350.00 mmol/ml; Total Contrast Delivered: 73. 0 ml; Total Saline Delivered: 40.0 ml Reading location - IP/workstation name: [email or web address]
== END ==
LOC: RAD 08:09
PROVIDERS: ATTEND Physician Assistant Medical
DX: C34.11 Malignant neoplasm of upper lobe, right bronchus or lung (principal); I71.4 Abdominal aortic aneurysm, without rupture
CPT/HCPCS: 71260; 74177

== ENCOUNTER 2020-07-30 12:25 | Emergency (ER) | payer MEDICAID ==
[2020-07-30] MEDS ORDERED: NORMAL SALINE 1000 ML 1,000 ML IV ONE (12:57)
--- NOTE | 2020-07-30 12:59 | ER Document Report ---
ED Medical Screen (RME) - General Chief Complaint: Abdominal Pain Stated Complaint: ABDOMINAL PAIN Time Seen by Provider: 07/30/20 12:56 Primary Care Provider: EDUARDO MCNAIR PA-C [Primary Care Provider] - Follow up as needed Information source: Patient Notes: Patient presents complaining of generalized lower abdominal tenderness. Patient states he has had constipation and has not had a bowel movement for 2 weeks. Patient denies any fever, nausea or vomiting. Patient denies any urinary symptoms. Patient states that he has stage IV lung cancer and is on chronic opioids. I have greeted and performed a rapid initial assessment of this patient. A comprehensive ED assessment and evaluation of the patient, analysis of test results and completion of the medical decision making process will be conducted by additional ED providers. TRAVEL OUTSIDE OF THE [place] IN LAST 30 DAYS: No - Related Data Allergies/Adverse Reactions: No Known Allergies Allergy (Verified 02/02/20 23:00) Past Medical History - Past Medical History Cardiac Medical History: Denies: Hx Coronary Artery Disease, Hx Heart Attack, Hx Hypertension Pulmonary Medical History: Reports: Hx COPD, Hx Pneumonia Denies: Hx Asthma, Hx Bronchitis Neurological Medical History: Reports: Hx Seizures - 40YRS AGO. Denies: Hx Cerebrovascular Accident Renal/ Medical History: Denies: Hx Peritoneal Dialysis Malignancy Medical History: Reports Hx Lung Cancer - stage III GI Medical History: Reports: Hx Gastritis Musculoskeltal Medical History: Denies Hx Arthritis - Immunizations Hx Diphtheria, Pertussis, Tetanus Vaccination: Yes Physical Exam - Vital signs Vitals: Temp Pulse Resp BP Pulse Ox 97.6 F 79 20 92/59 L 96 07/30/20 12:40 07/30/20 12:40 07/30/20 12:40 07/30/20 12:40 07/30/20 12:40 - Abdominal Bowel sounds: Normal Tenderness: Tender - Generalized lower abdomen Course - Vital Signs Vital signs: Temp Pulse Resp BP Pulse Ox 97.6 F 79 20 92/59 L 96 07/30/20 12:40 07/30/20 12:40 07/30/20 12:40 07/30/20 12:40 07/30/20 12:40 Doctor's Discharge - Discharge Referrals: EDUARDO MCNAIR PA-C [Primary Care Provider] - Follow up as needed
--- NOTE | 2020-07-30 13:29 | RADIOLOGY REPORT (SQ) ---
EXAM DESCRIPTION: KUB/ABDOMEN (SINGLE VIEW) IMAGES COMPLETED DATE/TIME: 07/30/2020 1:21 pm REASON FOR STUDY: abd pain, constipation COMPARISON: 05/29/2020 NUMBER OF VIEWS: One view. TECHNIQUE: Supine radiographic image of the abdomen acquired. LIMITATIONS: None. FINDINGS: BOWEL GAS PATTERN: Normal bowel gas pattern. No dilated loops. Moderate stool burden with in the ascending and rectosigmoid colon. CALCIFICATIONS: No suspicious calcifications. SOFT TISSUES: No gross mass or suggestion of organomegaly. HARDWARE: None in the abdomen. BONES: No acute fracture. No worrisome bone lesions. OTHER: No other significant finding. IMPRESSION: No evidence of intestinal obstruction or other acute intra-abdominal process. Moderate stool burden within the ascending and rectosigmoid colon. TECHNICAL DOCUMENTATION: JOB ID: [id number] 2010 [employer]- All Rights Reserved Reading location - IP/workstation name: [email or web address]
[2020-07-30] MEDS ORDERED: MINERAL OIL 30 ML UDCUP PR ONE (14:39)
--- NOTE | 2020-07-30 19:24 | ER Document Report ---
ED General - General Chief Complaint: Abdominal Pain Stated Complaint: ABDOMINAL PAIN Time Seen by Provider: 07/30/20 12:56 Primary Care Provider: EDUARDO MCNAIR PA-C [Primary Care Provider] - Follow up as needed Notes: Patient presents to the ER for evaluation of lower abdominal pain times approximately 2 weeks. The patient states he has not had a bowel movement during this time. He denies nausea or vomiting. He denies diarrhea. He denies fever. The patient states he is on chronic opiates due to stage IV lung cancer. He states he does have a history of constipation. Nursing notes reviewed and past medical, social, and family histories reviewed and validated. TRAVEL OUTSIDE OF THE [place] IN LAST 30 DAYS: No - Related Data Allergies/Adverse Reactions: No Known Allergies Allergy (Verified 02/02/20 23:00) Past Medical History - General Information source: Patient - Social History Smoking Status: Current Some Day Smoker Cigarette use (# per day): Yes - 10 Chew tobacco use (# tins/day): No Smoking Education Provided: Yes Frequency of alcohol use: None Drug Abuse: None Lives with: Alone Family History: Reviewed & Not Pertinent Patient has suicidal ideation: No Patient has homicidal ideation: No - Past Medical History Cardiac Medical History: Denies: Hx Coronary Artery Disease, Hx Heart Attack, Hx Hypertension Pulmonary Medical History: Reports: Hx COPD, Hx Pneumonia Denies: Hx Asthma, Hx Bronchitis EENT Medical History: Reports: None Neurological Medical History: Reports: Hx Seizures - 40YRS AGO. Denies: Hx Cerebrovascular Accident Endocrine Medical History: Reports: None Renal/ Medical History: Denies: Hx Peritoneal Dialysis Malignancy Medical History: Reports Hx Lung Cancer - stage III GI Medical History: Reports: Hx Gastritis Musculoskeletal Medical History: Denies Hx Arthritis Skin Medical History: Reports None Psychiatric Medical History: Reports: None Traumatic Medical History: Reports: None Infectious Medical History: Reports: None Past Surgical History: Reports: None - Immunizations Immunizations up to date: Yes Hx Diphtheria, Pertussis, Tetanus Vaccination: Yes Review of Systems - Review of Systems Notes: Constitutional: Negative for fever. HENT: Negative for sore throat. Eyes: Negative for visual changes. Cardiovascular: Negative for chest pain. Respiratory: Negative for shortness of breath. Gastrointestinal: Positive for abdominal pain. No vomiting or diarrhea. Genitourinary: Negative for dysuria. Musculoskeletal: Negative for back pain. Skin: Negative for rash. Neurological: Negative for headaches, weakness or numbness. 10 point ROS negative except as marked above and in HPI. Physical Exam - Vital signs Vitals: Temp Pulse Resp BP Pulse Ox 97.6 F 79 20 92/59 L 96 07/30/20 12:40 07/30/20 12:40 07/30/20 12:40 07/30/20 12:40 07/30/20 12:40 - Notes Notes: CONSTITUTIONAL: The patient appears to be in pain. He is in mild distress. SKIN: Warm, dry, and intact without rash EYES: Extraocular movements are grossly intact, clear conjunctiva HENT: Normocephalic, atraumatic, moist mucus membranes NECK: No obvious swelling, normal range of motion PULMONARY: Normal chest rise and fall. Breath sounds clear and equal bilaterally. No respiratory distress or stridor CARDIOVASCULAR: Regular rate. No murmurs, rubs, gallops. Distal extremities are warm and well perfused. ABDOMINAL: The abdomen is soft. There is tenderness to the left lower quadrant of the abdomen. NEUROLOGIC: Normal speech, moves all extremities. Cranial nerves are within normal limits. MUSCULOSKELETAL: No gross deformities, atraumatic PSYCHIATRIC: Normal mood and affect Course - Re-evaluation Re-evalutation: 07/30/20 19:28 Rechecked patient who has responded well to treatment in the ER. He feels much better and currently has no abdominal pain. He has had several large bowel movements following the enema. He has declined blood work and IVs at this time. Discussed with patient: results, diagnosis, treatment plan, and need for follow-up. Return to the emergency department warnings were given. All questions and concerns were addressed. The plan is agreed with and understood. Patient is stable and ready for discharge. - Vital Signs Vital signs: Temp Pulse Resp BP Pulse Ox 98.3 F 79 20 92/59 L 96 07/30/20 15:51 07/30/20 12:40 07/30/20 12:40 07/30/20 12:40 07/30/20 12:40 Discharge - Discharge Clinical Impression: Constipation Qualifiers: Constipation type: drug induced constipation Qualified Code(s): K59.03 - Drug induced constipation Condition: Good Disposition: HOME, SELF-CARE Instructions: Constipation ([facility]) Additional Instructions: Make sure that you take MiraLAX as discussed. If you are unable to have another bowel movement in the next 2 or 3 days, return to the emergency room. Do not wait for weeks. Referrals: EDUARDO MCNAIR PA-C [Primary Care Provider] - Follow up as needed
[2020-07-30 20:15] VITALS: BP 109/89
== END 2020-07-30 20:13 | disposition home or self-care (01) ==
LOC: ER 12:25
DX: K59.03 Drug induced constipation (principal); T50.905A Adverse effect of unspecified drugs, medicaments and biological substances, initial encounter; F17.210 Nicotine dependence, cigarettes, uncomplicated; C34.90 Malignant neoplasm of unspecified part of unspecified bronchus or lung; Z79.891 Long term (current) use of opiate analgesic
CPT/HCPCS: 99283; 74018; J3490

== ENCOUNTER → 2020-08-26 | Outpatient (CLI) | payer MEDICAID ==
--- NOTE | 2020-08-26 10:59 | RADIOLOGY REPORT (SQ) ---
EXAM DESCRIPTION: CT CHEST WITH IMAGES COMPLETED DATE/TIME: 08/26/2020 8:55 am REASON FOR STUDY: MALIGNANT NEOPLASM OF UPPER LOBE, RIGHT BRONCHUS OR LUNG C34.11 MALIGNANT NEOPLAS M OF UPPER LOBE, RIGHT BRONCHUS OR L COMPARISON: 06/05/2020, 03/17/2020, and 01/23/2020. TECHNIQUE: CT scan of the chest performed using helical scanning technique with dynamic intravenous contrast injection. Images reviewed with lung, soft tissue and bone windows. Reconstructed coronal and sagittal MPR and MIP images reviewed. All images stored on PACS. All CT scanners at this facility use dose modulation, iterative reconstruction, and/or weight based d osing when appropriate to reduce radiation dose to as low as reasonably achievable (ALARA). [facility]: Dose Right [facility]: CareDose [facility]: Dose Right [facility]: Teradose 4D [facility]: Var[employer]ent Software CONTRAST TYPE AND DOSE: 65 mL Omnipaque 350- low osmolar. RENAL FUNCTION: Creatinine 0.9 RADIATION DOSE: CT Rad equipment meets quality standard of care and radiation dose reduction techniq ues were employed. CTDIvol: 4.4 - 4.5 mGy. DLP: 686 mGy-cm. . LIMITATIONS: None. FINDINGS: LUNGS AND PLEURA: There is complete collapse of the right upper lobe with obstruction of t he right upper lobe bronchus. The right perihilar mass cannot be visualized due to the adjacent isabel apsed lung. A 6.4 mm nodule in the right lower lobe (axial series 6, image 52) is unchanged. Prior measurement 6.6 mm. A 7.0 mm nodule in the left lower lobe (axial series 6, image 96) is unchanged. Prior measurement 7.2 mm. Additional smaller, 3-4 mm pulmonary nodules primarily in the right lung are unchanged. Calcified granuloma in the left upper lobe. Chronic emphysematous changes with scarr ing. HILAR AND MEDIASTINAL STRUCTURES: No identified masses or abnormal nodes. HEART AND VASCULAR STRUCTURES: No aneurysm or dissection. No central pulmonary emboli. No pericardi al effusion. HARDWARE: Vascular port. UPPER ABDOMEN: No significant findings. Limited exam. THYROID AND OTHER SOFT TISSUES: No masses. No adenopathy. BONES: No significant finding. OTHER: No other significant finding. IMPRESSION: 1. INTERVAL COMPLETE COLLAPSE OF THE RIGHT UPPER LOBE DUE TO OBSTRUCTION OF THE RIGHT UPPER LOBE BRON CHUS. 2. PULMONARY NODULES UNCHANGED DESCRIBED. STABLE CHRONIC CHANGES IN THE LUNGS. TECHNICAL DOCUMENTATION: JOB ID: [id number] Quality ID # [id number]: Final reports with documentation of one or more dose reduction techniques (e.g., Au tomated exposure control, adjustment of the mA and/or kV according to patient size, use of iterative reconstruction technique) 2010 [employer]- All Rights Reserved Reading location - IP/workstation name: [email or web address]
--- NOTE | 2020-08-26 11:17 | RADIOLOGY REPORT (SQ) ---
EXAM DESCRIPTION: CT ABD/PELVIS WITH IV ONLY IMAGES COMPLETED DATE/TIME: 08/26/2020 8:55 am REASON FOR STUDY: MALIGNANT NEOPLASM OF UPPER LOBE, RIGHT BRONCHUS OR LUNG C34.11 MALIGNANT NEOPLAS M OF UPPER LOBE, RIGHT BRONCHUS OR L COMPARISON: 06/16/2020 and 03/17/2020. TECHNIQUE: CT scan of the abdomen and pelvis performed using helical scanning technique with dynamic intravenous contrast injection. No oral contrast. Images reviewed with lung, soft tissue, and bone windows. Reconstructed coronal and sagittal MPR images reviewed. Delayed images for evaluation of the urinary system also acquired. All images stored on PACS. All CT scanners at this facility use dose modulation, iterative reconstruction, and/or weight based d osing when appropriate to reduce radiation dose to as low as reasonably achievable (ALARA). [facility]: Dose Right [facility]: CareDose [facility]: Dose Right [facility]: Teradose 4D [facility]: Tap.Me CONTRAST TYPE AND DOSE: contrast/concentration: Isovue 350.00 mmol/ml; Total Contrast Delivered: 65. 0 ml; Total Saline Delivered: 45.0 ml RENAL FUNCTION: Creatinine 0.9. RADIATION DOSE: . LIMITATIONS: None. FINDINGS: LOWER CHEST: No significant findings. No nodules or infiltrates. LIVER: Normal size. No masses. No dilated ducts. SPLEEN: Normal size. No focal lesions. PANCREAS: No masses. No significant calcifications. No adjacent inflammation or peripancreatic fluid collections. Pancreatic duct not dilated. GALLBLADDER: No identified stones by CT criteria. No inflammatory changes to suggest cholecystitis. ADRENAL GLANDS: No significant masses or asymmetry. RIGHT KIDNEY AND URETER: No solid masses. No significant calcifications. No hydronephrosis or hyd roureter. LEFT KIDNEY AND URETER: No solid masses. No significant calcifications. No hydronephrosis or hydr oureter. AORTA AND VESSELS: 5.5 cm abdominal aortic aneurysm unchanged. Peripheral mural thrombus. No dissect ion. Renal arteries, SMA, celiac without stenosis. RETROPERITONEUM: No retroperitoneal adenopathy, hemorrhage or masses. BOWEL AND PERITONEAL CAVITY: No masses or inflammatory changes. No free fluid or peritoneal masses. APPENDIX: Normal. PELVIS: No mass. No free fluid. Normal bladder. ABDOMINAL WALL: No masses. No hernias. BONES: No significant or acute findings. OTHER: No other significant finding. IMPRESSION: 5.5 CM ABDOMINAL AORTIC ANEURYSM UNCHANGED. NO OTHER SIGNIFICANT OR ACUTE FINDING IN TH E ABDOMEN OR PELVIS ON CT SCAN WITH IV CONTRAST. NO EVIDENCE OF METASTATIC INVOLVEMENT IN THE ABDOME N OR PELVIS. TECHNICAL DOCUMENTATION: JOB ID: [id number] Quality ID # [id number]: Final reports with documentation of one or more dose reduction techniques (e.g., Au tomated exposure control, adjustment of the mA and/or kV according to patient size, use of iterative reconstruction technique) 2010 [employer]- All Rights Reserved Reading location - IP/workstation name: [email or web address]
== END ==
LOC: RAD 08:26
PROVIDERS: ATTEND Physician Assistant Medical
DX: C34.11 Malignant neoplasm of upper lobe, right bronchus or lung (principal)
CPT/HCPCS: 71260; 74177; 82565